=== PATIENT | female | born 1965 | race African-American/Black ===

== ENCOUNTER 2016-07-26 10:25 | Inpatient (IN) | payer OTHER ==
[2016-07-25 16:19] VITALS: BMI 32.8
[2016-07-26] VITALS (39 sets, daily range): BP systolic 90–146; BP diastolic 52–89; PULSE 66–94; RESP 9–19; Ht 180.3 cm; Wt 126.3 kg
[~2016-07-26] VITALS: Ht 180.3 cm; Wt 126.3 kg
[~2016-07-26 10:25] MED LIST: AMLO-147 PO; ATEN-51 PO; HYDR-902 PO; SUCCINYLCHOLINE CHLORIDE 100 MG/5 ML SYG IV ONE; ZOLP5TAB PO
--- NOTE | 2016-07-26 11:02 | PREOPHP ---
DATE OF ADMISSION: 07/26/2016 HISTORY OF PRESENT ILLNESS: The patient is a 50-year-old female who was originally seen in the [facility] for evaluation of neck pain with pain going down in the arms, right side greater than left side w ith weakness and numbness in the upper extremities. She also had gait instability. She would const antly lose her balance, but has not fallen yet. The patient was diagnosed with cervical stenosis wi th myelopathy and quadriparesis. Conservative management was initiated in the form of travel physical therapist apy and pain management. She did not improve. The patient also received epidural injection to the cervical spine which did not benefit her. Her condition is getting worse. The patient was having a n increasing amount of pain with more numbness and was having more gait instability. Something more definite needed to be done. The surgical intervention was discussed with the patient in the form of cervical 3 to cervical 7 morse inectomy with a fusion possible, instrumentation and possible laminoplasty. The patient has agreed to proceed with surgical intervention. PAST MEDICAL HISTORY: Per chart. PAST SURGICAL HISTORY: Per chart. SOCIAL HISTORY: Denies using drugs, alcohol and tobacco. ALLERGIES: POSSIBLY MORPHINE. MEDICATIONS: Taken at home, per chart. FAMILY HISTORY: Unremarkable. REVIEW OF SYSTEMS: Additional 10-point review of systems conducted. Pertinent positives in HPI. PHYSICAL EXAMINATION: GENERAL: The patient is awake, alert and she follows commands appropriately. HEENT: Head is atraumatic, normocephalic. Sclerae anicteric. EOMs intact. . No lesions, no bleeding. NECK: Supple, no thyromegaly, no JVD. PULMONARY: No dyspnea, no tachypnea. CARDIOVASCULAR SYSTEM: No JVD, no pedal edema. ABDOMEN: Soft without guarding. EXTREMITIES: Upper extremity exam, patient has 4/5 strength in the right deltoid, biceps, triceps, wrist extensors and flexors are equal on both sides. Sensation is intact throughout. Lower extremi ty examination, patient has equal strength in both the knees and ankles. Ankle flexion/extension an d sensation is intact. IMAGING FINDINGS: MRI of the cervical spine dated 05/17/2016 shows severe cervical stenosis, C3 to C7, with evidence of cord compression. IMPRESSION: The patient is a 50-year-old female who has history of severe cervical stenosis with ev idence of cord compression and myelopathy. The patient has difficulty with ambulation, has evidence of cervical radiculopathy as well as myelopathy. RECOMMENDATION: Is for patient to undergo surgical intervention in the form of cervical 3 to 7 lami nectomy with fusion and possible laminoplasty with possible instrumentation. The procedure was desc ribed to the patient in great deal. Unfortunately, this is the only option left. The patient has f jake conservative management. The complications of cervical intervention was discussed with the norma brock in the form of permanent nerve damage, bleeding, infection, complications with anesthesia, inc luding stroke, heart attack and even . The patient has agreed to proceed with intervention. P reop was performed. Patient has been cleared for surgical intervention. Will be admitted to the [facility] thereafter for further care and management. Dictated By: KEERTHI SIMPSON/MAL Conf#: [id number] DID#: [id number]
[2016-07-26] MEDS ORDERED: LORA10TA3 PO (11:11)
[2016-07-26] MEDS ORDERED: FLUT16SP17 NASAL (11:11)
[2016-07-26] MEDS ORDERED: SULF1TAB31 PO (11:12)
[2016-07-26] MEDS ORDERED: OMEP20CA16 PO (11:13)
[2016-07-26] MEDS ORDERED: ZOLP5TAB7 PO (11:19)
[2016-07-26] MEDS ORDERED: FENTAnyl 50 MCG/ML VIAL ONE ×2 (12:04→15:17)
[2016-07-26] MEDS ORDERED: ROCURONIUM 50 MG INJ ONE (12:04)
[2016-07-26] MEDS ORDERED: MIDAZOLAM 1 MG/ML 2 ML INJ ONE (12:04)
[2016-07-26] MEDS ORDERED: LIDOCAINE 2% (SDV) 5 ML INJ ONE (12:04)
[2016-07-26] MEDS ORDERED: NEOSTIGMINE 3 MG/3 ML SYRINGE ONE (12:04)
[2016-07-26] MEDS ORDERED: PROPOFOL 20 ML ONE (12:04)
[2016-07-26] MEDS ORDERED: GLYCOPYRROLATE 0.4 MG INJ ONE (12:04)
[2016-07-26] MEDS ORDERED: DEXAMETHASONE 4 MG/ML 1 ML INJ ONE (12:05)
[2016-07-26] MEDS ORDERED: ONDANSETRON 4 MG INJ ONE (12:05)
[2016-07-26] MEDS ORDERED: THROMBIN 5000 UNIT VIAL ONE ×2 (12:07→15:48)
[2016-07-26] MEDS ORDERED: GELATIN SIZE 100 SPONGE ONE ×2 (12:07→15:48)
--- NOTE | 2016-07-26 12:07 | HPN ---
Date/Time of Note Date/Time of Note DATE: 07/26/16 TIME: 12:06 Interval H&P Admission Note Pt. seen H&P reviewed: No system changes LINDSAY HARVEY PA-C Jul 26, 2016 12:07
[2016-07-26] MEDS ORDERED: LIDOCAINE 2%/EPI (MDV) 20ML INJ ONE (12:08)
[2016-07-26] MEDS ORDERED: POLYMYXIN/BACITRACIN 1L IRRIG ONE (12:08)
[2016-07-26 12:30] LABS: ADD UMIC NO; UR BILIRUBIN (Dip) NEGATIVE (NEGATIVE); UR BLOOD (Dip) NEGATIVE (NEGATIVE); UR CLARITY CLEAR (CLEAR); UR COLOR LT. YELLOW (YELLOW); UR GLUCOSE (Dip) NEGATIVE (NEGATIVE); UR KETONES (Dip) NEGATIVE (NEGATIVE); UR LEUKOCYTE ESTERASE (Dip) NEGATIVE (NEGATIVE); UR NITRITE (Dip) NEGATIVE (NEGATIVE); UR TOTAL PROTEIN (Dip) NEGATIVE (NEGATIVE); UR UROBILINOGEN (Dip) 0.2 E.U./dL (0.1-1.0)
[2016-07-26] MEDS ORDERED: ONDANSETRON 4 MG INJ IV PRN ×2 (12:30→13:00)
[2016-07-26] MEDS ORDERED: DIPHENHYDRAMINE 50 MG INJ IV PRN (13:00)
[2016-07-26] MEDS ORDERED: MEPERIDINE 25 MG INJ IV PRN (13:00)
[2016-07-26] MEDS ORDERED: ATROPINE 1 MG/10 ML SYRINGE IV PRN (13:00)
[2016-07-26] MEDS ORDERED: MIDAZOLAM 1 MG/ML 2 ML INJ IV PRN (13:00)
[2016-07-26] MEDS ORDERED: EPHEDrine SULFATE 50 MG/5 ML SYG IV PRN (13:00)
[2016-07-26] MEDS ORDERED: LABETALOL HCL 20MG INJ IV PRN (13:00)
[2016-07-26] MEDS ORDERED: hydrALAzine 20 MG INJ IV PRN ×2 (13:00→18:00)
[2016-07-26] MEDS ORDERED: FENTAnyl 50 MCG/ML VIAL IV PRN (13:00)
[2016-07-26] MEDS ORDERED: TRIMETHOPRIM/SULFAMETHOXAZOLE 10 ML in DEXTROSE 5% 250 ML IVPB SCH (14:00)
[2016-07-26] MEDS ORDERED: hydrALAzine 20 MG INJ ONE (14:04)
[2016-07-26] MEDS ORDERED: LABETALOL HCL 20MG INJ ONE (14:12)
[2016-07-26] MEDS ORDERED: EPHEDrine SULFATE 50 MG/5 ML SYG ONE (14:30)
[2016-07-26] MEDS ORDERED: THROMBIN 5000 UNIT VIAL TOP ONE (17:04)
[2016-07-26] MEDS: FENTAnyl 50 MCG/ML VIAL IV PRN ×2 (17:05→17:16)
[2016-07-26] MEDS ORDERED: HYDROmorphONE 0.2 MG/ML PCA ONE (17:26)
[2016-07-26] MEDS: HYDROmorphONE 0.2 MG/ML PCA IV SCH ×2 (17:36→22:00)
--- NOTE | 2016-07-26 18:53 | HP ---
DATE OF ADMISSION: 07/26/2016 CHIEF COMPLAINT AND HISTORY OF PRESENT ILLNESS: The patient is a 50-year-old female well known to teresa faria from previous admission. The patient has history of hypertension, lumbar spondylolisthesis, statu s post lumbar laminectomy. The patient was also subsequently diagnosed with cervical radiculopathy due to severe cervical stenosis and evidence of cord compression and myelopathy on MRI of the C-spin e back in 04/2016. The patient was complaining of chronic neck pain, which radiated to both upper e xtremities associated with weakness and numbness. The patient also had instability of her gait. Th e patient was brought into the hospital today and underwent C3 to C7 laminectomy with fusion. The p atient postoperatively had significant pain, which is being controlled by Dilaudid FUNERAL ARRANGEMENT DIRECTOR. Patient als o has a hard cervical collar. The patient denied any chest pain or abdominal pain, no reported leg edema. The patient is able to move all extremities and has remained responsive. No recent fevers, chills. No recent fall. No recent urinary or respiratory tract infection. unremarkable. PAST MEDICAL HISTORY: As stated above. PAST SURGICAL HISTORY: As stated above. In addition, the patient is status post hysterectomy. SOCIAL HISTORY: No smoking, no alcohol. ALLERGIES: NONE. FAMILY HISTORY: Noncontributory. PHYSICAL EXAMINATION: GENERAL: The patient is conscious, awake and alert. The patient is responsive, slightly sleepy but easily arousable. VITAL SIGNS: Temperature 97.4, pulse 66, respirations 16, blood pressure 130/89, O2 saturation 99% on 2 liters nasal cannula. HEENT: Conjunctivae and lids are normal. Nose and ears normal externally. NECK: Deferred due to cervical collar. CHEST: Fairly clear. CARDIOVASCULAR: S1, S2 normal. No murmur. ABDOMEN: Soft, nondistended, nontender. EXTREMITIES: No leg edema. NEUROLOGIC: The patient is a sleepy but arousable and follows simple commands and moves all extremi ties. LABORATORY DATA: Glucose 107, BUN 12, creatinine 0.8. Sodium 142, potassium 4.7. Liver enzymes no rmal. Coagulation profile normal with white count is 5.6, hemoglobin 15.9. The patient preoperativ lance did have possible urinary infection, although her urine culture was done for preop evaluation. The patient was treated with antibiotics prior to surgery. IMPRESSION: 1. Cervical spinal stenosis with cord compression and myelopathy status post laminectomy. 2. Hypertension. 3. History of lumbar stenosis and spondylolisthesis, status post surgery. PLAN: Patient admitted to ICU. Patient has an arterial line. We will continue to monitor her beth l signs closely. The patient is receiving IV Bactrim. THE PATIENT IS ALLERGIC TO MORPHINE, althoug h she is able to tolerate IV Dilaudid. We will use sequential compression devices for deep venous t hrombosis prophylaxis. The patient apparently was on Bactrim-DS prior to surgery for her recent Esc herichia coli in the urine culture. We will be resume amlodipine and atenolol, Flonase nasal spray and Ambien and proton pump inhibitor whenever she is able to take p.o. We will continue to follow h er from a medical standpoint. While she is n.p.o., we will use IV hydralazine p.r.n. for blood pres sure. Dictated By: ISIAH GRANT/MAL Conf#: [id number] DID#: [id number]
[2016-07-26] MEDS: HYDROCODONE/APAP (10/325) TAB PO PRN (19:12)
[2016-07-26] MEDS: DEXAMETHASONE 4 MG/ML 1 ML INJ IV SCH (19:17)
--- NOTE | 2016-07-26 21:48 | RADRPT ---
PROCEDURE: Intraoperative fluoroscopy. CLINICAL INDICATION: Intraoperative fluoroscopy during C3-C7 posterior fusion. TECHNIQUE: 3 spot intraoperative fluoroscopic images were provided. The images were reviewed on a high-resolution PACS workstation. COMPARISON: None available FINDINGS: Multiple spot intraoperative fluoroscopic views were provided during all C3-C7 posterior fusion. Th e images demonstrate partial visualization of the upper cervical spine and C3-C4. The total fluoros copy time was 12.3 seconds. IMPRESSION: 1. Multiple spot intraoperative fluoroscopic views during cervical fusion were provided. 2. Please see operative report of the same day for further information. RPTAT: HGAS .Arsenio Rhodes MD, MD Date Time Electronically viewed and signed by .Arsenio Rhodes MD, on 07/26/2016 21:48 .S/
[2016-07-26] MEDS: DEXTROSE 5%-LR 1,000 ML IV SCH (21:50)
[2016-07-26] MEDS: TRIMETHOPRIM/SULFAMETHOXAZOLE 10 ML in DEXTROSE 5% 250 ML IVPB SCH (22:06)
[2016-07-27] VITALS (22 sets, daily range): BP systolic 88–139; BP diastolic 58–115; PULSE 55–90; RESP 8–20
[2016-07-27] MEDS: DEXAMETHASONE 4 MG/ML 1 ML INJ IV SCH ×4 (01:10→18:20)
[2016-07-27] MEDS: HYDROCODONE/APAP (10/325) TAB PO PRN ×6 (01:10→22:09)
[2016-07-27] MEDS: ONDANSETRON 4 MG INJ IV PRN (02:45)
[2016-07-27 05:12] LABS: ADD SCAN DIFF NO
[2016-07-27] MEDS: PANTOPRAZOLE (EC) 40 MG TAB PO SCH (05:13)
[2016-07-27 05:18] LABS: BASOPHILS % 0.1 % (0.0-2.0); HEMATOCRIT 43.3 % (37.0-47.0); HEMOGLOBIN 14.1 g/dl (12.0-16.0); LYMPHOCYTES # 0.8 10^3/ul (0.8-2.9); LYMPHOCYTES % 5.3 % (15.0-51.0); MEAN CORPUSCULAR HEMOGLOBIN 29.8 pg (29.0-33.0); MEAN CORPUSCULAR HGB CONC 32.6 g/dl (32.0-37.0); MEAN CORPUSCULAR VOLUME 91.5 fl (82.0-101.0); MEAN PLATELET VOLUME 10.9 fl (7.4-10.4); MONOCYTE # 0.3 10^3/ul (0.3-0.9); MONOCYTES % 1.8 % (0.0-11.0); NEUTROPHIL # 13.1 10^3/ul (1.6-7.5); NEUTROPHILS % 92.3 % (39.0-77.0); PLATELET COUNT 275 10^3/UL (140-415); RED BLOOD COUNT 4.73 10^6/ul (4.20-5.40); RED CELL DISTRIBUTION WIDTH 12.7 % (11.5-14.5); WHITE BLOOD COUNT 14.2 10^3/ul (4.8-10.8)
[2016-07-27] MEDS: HYDROmorphONE 0.2 MG/ML PCA IV SCH ×5 (05:27→23:38)
[2016-07-27 05:35] LABS: CALCIUM 8.8 mg/dl (8.4-10.2); CREATININE 0.69 mg/dl (0.44-1.00); POTASSIUM 4.7 mmol/L (3.5-5.1)
[2016-07-27] MEDS: TRIMETHOPRIM/SULFAMETHOXAZOLE 10 ML in DEXTROSE 5% 250 ML IVPB SCH (05:51)
[2016-07-27] MEDS: FLUTICASONE 0.05% 16 GM NAS SPRAY NASAL SCH (05:52)
[2016-07-27] MEDS: DEXTROSE 5%-LR 1,000 ML IV SCH ×2 (06:50→20:10)
--- NOTE | 2016-07-27 07:16 | CONS ---
Date/Time of Note Date/Time of Note DATE: 07/27/16 TIME: 07:13 Assessment/Plan Assessment/Plan Additional Assessment/Plan seen/examined awake/alert/follows/moves all/sensation intact post cervical decompression drain functional, keep on full suction, drain q8hrs pt may start pt/ot may leave unit Consultation Date/Type/Reason Admit Date/Time Jul 26, 2016 at 10:25 Initial Consult Date Exam/Review of Systems Vital Signs Vitals Vital Signs Date Time Temp Pulse Resp B/P Pulse Ox O2 Delivery O2 Flow Rate FiO2 07/27/16 06:18 96 4.0 07/27/16 06:00 69 9 110/70 07/27/16 04:00 98.4 07/27/16 02:00 Nasal Cannula Intake and Output 07/26/16 07/26/16 07/27/16 15:00 23:00 07:00 Intake Total 3810 ml 690 ml Output Total 1310 ml 650 ml Balance 2500 ml 40 ml Results Result Diagram: 07/27/16 0430 07/27/16 0430 Results 24 hrs Laboratory Tests Test 07/26/16 11:00 07/27/16 01:01 07/27/16 04:30 Urine Color LT. YELLOW Urine Clarity CLEAR Urine pH 6.0 Urine Specific [place] >=1.030 H Urine Ketones NEGATIVE Urine Nitrite NEGATIVE Urine Bilirubin NEGATIVE Urine Urobilinogen 0.2 E.U./dL Urine Leukocyte Esterase NEGATIVE Urine Hemoglobin NEGATIVE Urine Glucose NEGATIVE Urine Total Protein NEGATIVE Bedside Glucose 140 White Blood Count 14.2 #H Red Blood Count 4.73 # Hemoglobin 14.1 # Hematocrit 43.3 # Mean Corpuscular Volume 91.5 Mean Corpuscular Hemoglobin 29.8 Mean Corpuscular Hemoglobin Concent 32.6 Red Cell Distribution Width 12.7 Platelet Count 275 Mean Platelet Volume 10.9 #H Neutrophils % 92.3 H Lymphocytes % 5.3 L Monocytes % 1.8 Eosinophils % 0.0 Basophils % 0.1 Nucleated Red Blood Cells % 0.0 Neutrophils # 13.1 H Lymphocytes # 0.8 Monocytes # 0.3 Eosinophils # 0.0 Basophils # 0.0 Nucleated Red Blood Cells # 0.0 Sodium Level 140 Potassium Level 4.7 Chloride Level 108 Carbon Dioxide Level 25 Anion Gap 12 Blood Urea Nitrogen 9 Creatinine 0.69 Glucose Level 127 Calcium Level 8.8 Medications Medications Current Medications Acetaminophen/ Hydrocodone Bitart ([place] (10325)) 1 tab Q4H PRN PO PAIN Last administered on 07/27/16 05:13; Admin Dose 1 TAB; Start 07/26/16 at 12:30 Dexamethasone (Decadron) 4 mg Q6 IV Last administered on 07/27/16 05:13; Admin Dose 4 MG; Start 07/26/16 at 18:00; Stop 07/27/16 at 18:00 Ondansetron HCl (Zofran Inj) 4 mg Q6H PRN IV NAUSEA AND/OR VOMITING Last administered on 07/27/16 02:45; Admin Dose 4 MG; Start 07/26/16 at 12:30 Hydromorphone HCl 6 mg 6 mg Q4PCA IV Last administered on 07/27/16 05:27; Admin Dose 6 MG; Start 07/26/16 at 17:30 Dextrose/Lactated Ringer's (D5-Lr) 1,000 ml @ 75 mls/hr [id number] IV Last administered on 07/26/16 21:50; Admin Dose 75 MLS/HR; Start 07/26/16 at 17:30 Amlodipine Besylate (Norvasc) 10 mg DAILY PO ; Start 07/27/16 at 09:00 Atenolol (Tenormin) 25 mg DAILY PO ; Start 07/27/16 at 09:00 Fluticasone Propionate (Flonase 0.05% Nasal) 1 spray DAILY NASAL Last administered on 07/27/16 05:52; Admin Dose 1 SPRAY; Start 07/27/16 at 09:00 Zolpidem Tartrate (Ambien) 5 mg QHS PRN PO INSOMNIA; Start 07/26/16 at 18:00 Pantoprazole (Protonix Tab) 40 mg DAILY@06 PO Last administered on 07/27/16 05: 13; Admin Dose 40 MG; Start 07/27/16 at 06:00 Hydralazine HCl 10 mg 10 mg Q4H PRN IV sbp >150 & dbp>95; Start 07/26/16 at 18: 00 Trimethoprim/ Sulfamethoxazole/ Dextrose (Bactrim/D5W) 260 ml @ 173.333 mls/hr Q8 IVPB Last administered on 07/27/16 05:51; Admin Dose 173.333 MLS/HR; Start 07/26/16 at 22:00; Stop 07/29/16 at 21:59 LINDSAY HARVEY PA-C Jul 27, 2016 07:16
[2016-07-27] MEDS ORDERED: AMLODIPINE 10 MG TAB PO SCH (09:00)
[2016-07-27] MEDS: ATENOLOL 25 MG TAB PO SCH (09:22)
[2016-07-27] MEDS: CYCLOBENZAPRINE 10 MG TAB PO SCH ×2 (12:59→20:19)
--- NOTE | 2016-07-27 13:22 | PN ---
DATE: 07/27/2016 SUBJECTIVE: Follow up on cervical decompression. The patient remains awake, alert, complaining of back spasm. No reported chest pain or shortness of breath. No reported fever or chills. PHYSICAL EXAMINATION: GENERAL: The patient is conscious, awake, alert. VITAL SIGNS: This morning, temperature 98.1, pulse 63, respirations between 10 to 13, blood pressur e 107/72, O2 saturation 95% on 4 liters. HEENT: No eye discharge or redness. NECK: Cervical collar in place. CHEST: Fairly clear. CARDIOVASCULAR: S1, S2 normal. No murmur. ABDOMEN: Soft, nondistended, nontender. EXTREMITIES: No leg edema. NEUROLOGIC: The patient is awake, alert, follows simple commands and moves all extremities. LABORATORY DATA: WBC 14.3, hemoglobin 14.1. Chemistry unremarkable. IMPRESSION: 1. Cervical spinal stenosis with cord compression, status post surgery. 2. Hypertension. 3. History of lumbar stenosis, status post surgery. PLAN: We will write hold parameters for her antihypertensive medications. We will decrease Norvasc to 5 mg a day since blood pressure is less than 110 on multiple occasions. We will continue atenol ol. Will do followup CBC. Continue postop care as per Dr. Cardona. Put of ICU once cleared by [facility]. We will switch her IV Bactrim to p.o. Bactrim. Dictated By: SIIAH GRANT/MAL Conf#: [id number] DID#: [id number]
[2016-07-27] MEDS ORDERED: HYDROmorphONE 1 MG/ML SYG IV STA (19:40)
[2016-07-27] MEDS: TRIMETHOPRIM/SULFAMETHOX (DS) TAB GTB SCH (20:20)
[2016-07-27] MEDS ORDERED: HYDROmorphONE 1 MG/ML SYG IV PRN (20:30)
[2016-07-27] MEDS ORDERED: HYDROmorphONE 0.2 MG/ML PCA IV SCH (21:00)
[2016-07-28] VITALS (27 sets, daily range): BP systolic 95–129; BP diastolic 57–88; PULSE 55–77; RESP 7–17
[2016-07-28] MEDS: ZOLPIDEM 5 MG TAB PO PRN ×2 (00:17→23:48)
[2016-07-28] MEDS: DEXTROSE 5%-LR 1,000 ML IV SCH ×2 (04:58→18:06)
[2016-07-28] MEDS: HYDROCODONE/APAP (10/325) TAB PO PRN ×4 (05:06→19:43)
[2016-07-28] MEDS: PANTOPRAZOLE (EC) 40 MG TAB PO SCH (05:07)
[2016-07-28] MEDS: HYDROmorphONE 0.2 MG/ML PCA IV SCH ×5 (06:50→21:03)
[2016-07-28] MEDS: AMLODIPINE 5 MG TAB PO SCH (09:00)
[2016-07-28] MEDS: ATENOLOL 25 MG TAB PO SCH (09:00)
[2016-07-28] MEDS: FLUTICASONE 0.05% 16 GM NAS SPRAY NASAL SCH (09:09)
[2016-07-28] MEDS: TRIMETHOPRIM/SULFAMETHOX (DS) TAB GTB SCH ×2 (09:09→20:21)
[2016-07-28] MEDS: CYCLOBENZAPRINE 10 MG TAB PO SCH ×3 (09:26→20:21)
[2016-07-28 09:52] LABS: ADD SCAN DIFF NO
[2016-07-28 10:16] LABS: BASOPHILS % 0.1 % (0.0-2.0); HEMATOCRIT 42.5 % (37.0-47.0); HEMOGLOBIN 13.3 g/dl (12.0-16.0); LYMPHOCYTES # 1.8 10^3/ul (0.8-2.9); LYMPHOCYTES % 10.5 % (15.0-51.0); MEAN CORPUSCULAR HEMOGLOBIN 29.9 pg (29.0-33.0); MEAN CORPUSCULAR HGB CONC 31.3 g/dl (32.0-37.0); MEAN CORPUSCULAR VOLUME 95.5 fl (82.0-101.0); MEAN PLATELET VOLUME 10.9 fl (7.4-10.4); MONOCYTE # 1.2 10^3/ul (0.3-0.9); MONOCYTES % 7.4 % (0.0-11.0); NEUTROPHIL # 13.7 10^3/ul (1.6-7.5); NEUTROPHILS % 81.6 % (39.0-77.0); PLATELET COUNT 303 10^3/UL (140-415); RED BLOOD COUNT 4.45 10^6/ul (4.20-5.40); RED CELL DISTRIBUTION WIDTH 13.1 % (11.5-14.5); WHITE BLOOD COUNT 16.8 10^3/ul (4.8-10.8)
--- NOTE | 2016-07-28 15:50 | PN ---
Date/Time of Note Date/Time of Note DATE: 07/28/16 TIME: 15:46 Assessment/Plan VTE Prophylaxis VTE Prophylaxis Intervention: SCD's Lines/Catheters IV Catheter Type (from Nrsg): Peripheral IV Urinary Cath still in place: Yes Reason Cath still needed: urinary retention Assessment/Plan Chief Complaint/Hosp Course Patient's continues on CIRCUS TRAIN SUPERVISOR Dilaudid, complaints of breakthrough pain when awake , minimal amount of drainage from Hemovac back, stable vital signs. Problems: Assessment/Plan 1. Cervical spinal stenosis with cord compression, status post surgery. Continue to follow-up surgical recommendations. 2. Hypertension. currently normotensive. 3. History of lumbar stenosis, status post surgery. Further recommendations based on clinical course. Plan of care discussed with Dr. Wade. Exam/Review of Systems Vital Signs Vitals Vital Signs Date Time Temp Pulse Resp B/P Pulse Ox O2 Delivery O2 Flow Rate FiO2 07/28/16 15:35 15 07/28/16 14:00 65 115/81 100 Nasal Cannula 4.0 07/28/16 12:00 98.1 Intake and Output 07/27/16 07/27/16 07/28/16 15:00 23:00 07:00 Intake Total 1080 ml 350 ml 740 ml Output Total 895 ml 475 ml 1125 ml Balance 185 ml -125 ml -385 ml Exam Constitutional: alert Head: normocephalic Neck: other (Status post surgery with dry clean and dry and intact dressing and Hemovac), supple Respiratory: clear to auscultation Cardiovascular: nl pulses Gastrointestinal: non-tender, soft Musculoskeletal: nl extremities to inspection Extremities: normal pulses Neurological: nl mental status Results Result Diagram: 07/28/16 0922 07/27/16 0430 Results 24 hrs Laboratory Tests Test 07/28/16 09:22 White Blood Count 16.8 H Red Blood Count 4.45 Hemoglobin 13.3 Hematocrit 42.5 Mean Corpuscular Volume 95.5 Mean Corpuscular Hemoglobin 29.9 Mean Corpuscular Hemoglobin Concent 31.3 L Red Cell Distribution Width 13.1 Platelet Count 303 Mean Platelet Volume 10.9 H Neutrophils % 81.6 H Lymphocytes % 10.5 L Monocytes % 7.4 Eosinophils % 0.0 Basophils % 0.1 Nucleated Red Blood Cells % 0.0 Neutrophils # 13.7 H Lymphocytes # 1.8 Monocytes # 1.2 H Eosinophils # 0.0 Basophils # 0.0 Nucleated Red Blood Cells # 0.0 Medications Medications Current Medications Acetaminophen/ Hydrocodone Bitart ([place] (10/325)) 1 tab Q4H PRN PO PAIN Last administered on 07/28/16 14:30; Admin Dose 1 TAB; Start 07/26/16 at 12:30 Ondansetron HCl 4 mg 4 mg Q6H PRN IV NAUSEA AND/OR VOMITING Last administered on 07/27/16 02:45; Admin Dose 4 MG; Start 07/26/16 at 12:30 Dextrose/Lactated Ringer's (D5-Lr) 1,000 ml @ 75 mls/hr [id number] IV Last administered on 07/28/16 04:58; Admin Dose 75 MLS/HR; Start 07/26/16 at 17:30 Atenolol (Tenormin) 25 mg DAILY PO Last administered on 07/27/16 09:22; Admin Dose 25 MG; Start 07/27/16 at 09:00 Fluticasone Propionate (Flonase 0.05% Nasal) 1 spray DAILY NASAL Last administered on 07/28/16 09:09; Admin Dose 1 SPRAY; Start 07/27/16 at 09:00 Zolpidem Tartrate (Ambien) 5 mg QHS PRN PO INSOMNIA Last administered on 00:17; Admin Dose 5 MG; Start 07/26/16 at 18:00 Pantoprazole (Protonix Tab) 40 mg DAILY@06 PO Last administered on 07/28/16 05: 07; Admin Dose 40 MG; Start 07/27/16 at 06:00 Hydralazine HCl (Apresoline) 10 mg Q4H PRN IV sbp >150 & dbp>95; Start 07/26/16 at 18:00 Cyclobenzaprine HCl (Flexeril) 10 mg TID PO Last administered on 07/28/16 12:58 ; Admin Dose 10 MG; Start 07/27/16 at 13:00 Amlodipine Besylate (Norvasc) 5 mg DAILY PO ; Start 07/28/16 at 09:00 Trimethoprim/ Sulfamethoxazole (Bactrim (Ds)) 1 tab BID GTB Last administered on 07/28/16 09:09; Admin Dose 1 TAB; Start 07/27/16 at 21:00 Hydromorphone HCl (Dilaudid) 1 mg Q1HWA PRN IV PAIN LEVEL 7-10; Start 07/27/16 at 20:30 Hydromorphone HCl (Dilaudid CIRCUS TRAIN SUPERVISOR) 6 mg Q4H IV Last administered on 07/28/16 15: 32; Admin Dose 6 MG; Start 07/27/16 at 20:30 DANII PELAEZ Jul 28, 2016 15:50
--- NOTE | 2016-07-28 16:06 | CONS ---
Date/Time of Note Date/Time of Note DATE: 07/28/16 TIME: 16:04 Assessment/Plan Assessment/Plan Additional Assessment/Plan seen/examined awake/alert/follows/moves all co neck spasm with numbness in shoulders advised pt not to put any pressure on the surgical site ativan will be given prior to mri keep hemovac drain another day Consultation Date/Type/Reason Admit Date/Time Jul 26, 2016 at 10:25 Exam/Review of Systems Vital Signs Vitals Vital Signs Date Time Temp Pulse Resp B/P Pulse Ox O2 Delivery O2 Flow Rate FiO2 07/28/16 15:35 15 07/28/16 14:00 65 115/81 100 Nasal Cannula 4.0 07/28/16 12:00 98.1 Intake and Output 07/27/16 07/27/16 07/28/16 15:00 23:00 07:00 Intake Total 1080 ml 350 ml 740 ml Output Total 895 ml 475 ml 1125 ml Balance 185 ml -125 ml -385 ml Results Result Diagram: 07/28/16 0922 07/27/16 0430 Results 24 hrs Laboratory Tests Test 07/28/16 09:22 White Blood Count 16.8 H Red Blood Count 4.45 Hemoglobin 13.3 Hematocrit 42.5 Mean Corpuscular Volume 95.5 Mean Corpuscular Hemoglobin 29.9 Mean Corpuscular Hemoglobin Concent 31.3 L Red Cell Distribution Width 13.1 Platelet Count 303 Mean Platelet Volume 10.9 H Neutrophils % 81.6 H Lymphocytes % 10.5 L Monocytes % 7.4 Eosinophils % 0.0 Basophils % 0.1 Nucleated Red Blood Cells % 0.0 Neutrophils # 13.7 H Lymphocytes # 1.8 Monocytes # 1.2 H Eosinophils # 0.0 Basophils # 0.0 Nucleated Red Blood Cells # 0.0 Medications Medications Current Medications Acetaminophen/ Hydrocodone Bitart ([place] (10/325)) 1 tab Q4H PRN PO PAIN Last administered on 07/28/16 14:30; Admin Dose 1 TAB; Start 07/26/16 at 12:30 Ondansetron HCl 4 mg 4 mg Q6H PRN IV NAUSEA AND/OR VOMITING Last administered on 07/27/16 02:45; Admin Dose 4 MG; Start 07/26/16 at 12:30 Dextrose/Lactated Ringer's (D5-Lr) 1,000 ml @ 75 mls/hr [id number] IV Last administered on 07/28/16 04:58; Admin Dose 75 MLS/HR; Start 07/26/16 at 17:30 Atenolol (Tenormin) 25 mg DAILY PO Last administered on 07/27/16 09:22; Admin Dose 25 MG; Start 07/27/16 at 09:00 Fluticasone Propionate (Flonase 0.05% Nasal) 1 spray DAILY NASAL Last administered on 07/28/16 09:09; Admin Dose 1 SPRAY; Start 07/27/16 at 09:00 Zolpidem Tartrate (Ambien) 5 mg QHS PRN PO INSOMNIA Last administered on 00:17; Admin Dose 5 MG; Start 07/26/16 at 18:00 Pantoprazole (Protonix Tab) 40 mg DAILY@06 PO Last administered on 07/28/16 05: 07; Admin Dose 40 MG; Start 07/27/16 at 06:00 Hydralazine HCl (Apresoline) 10 mg Q4H PRN IV sbp >150 & dbp>95; Start 07/26/16 at 18:00 Cyclobenzaprine HCl (Flexeril) 10 mg TID PO Last administered on 07/28/16 12:58 ; Admin Dose 10 MG; Start 07/27/16 at 13:00 Amlodipine Besylate (Norvasc) 5 mg DAILY PO ; Start 07/28/16 at 09:00 Trimethoprim/ Sulfamethoxazole (Bactrim (Ds)) 1 tab BID GTB Last administered on 07/28/16 09:09; Admin Dose 1 TAB; Start 07/27/16 at 21:00 Hydromorphone HCl (Dilaudid) 1 mg Q1HWA PRN IV PAIN LEVEL 7-10; Start 07/27/16 at 20:30 Hydromorphone HCl (Dilaudid DIMENSION STONE QUARRY SUPERVISOR) 6 mg Q4H IV Last administered on 07/28/16 15: 32; Admin Dose 6 MG; Start 07/27/16 at 20:30 LINDSAY HARVEY PA-C Jul 28, 2016 16:06
[2016-07-28] MEDS ORDERED: LORAZEPAM 2 MG INJ IV ONE (16:30)
[2016-07-28] MEDS: DEXAMETHASONE 4 MG/ML 1 ML INJ IV SCH ×2 (18:03→23:48)
[2016-07-28] MEDS: DOCUSATE SODIUM 250 MG CAP PO SCH (20:21)
[2016-07-29] VITALS (20 sets, daily range): BP systolic 106–159; BP diastolic 63–123; PULSE 59–114; RESP 8–25
[2016-07-29] MEDS: HYDROmorphONE 0.2 MG/ML PCA IV SCH ×3 (00:30→09:26)
[2016-07-29] MEDS: HYDROCODONE/APAP (10/325) TAB PO PRN ×5 (00:32→21:34)
[2016-07-29] MEDS: ONDANSETRON 4 MG INJ IV PRN (03:44)
[2016-07-29 05:44] LABS: ADD SCAN DIFF NO
[2016-07-29 05:48] LABS: BASOPHILS % 0.1 % (0.0-2.0); HEMATOCRIT 42.5 % (37.0-47.0); HEMOGLOBIN 13.2 g/dl (12.0-16.0); LYMPHOCYTES % 8.7 % (15.0-51.0); MEAN CORPUSCULAR HEMOGLOBIN 29.6 pg (29.0-33.0); MEAN CORPUSCULAR HGB CONC 31.1 g/dl (32.0-37.0); MEAN CORPUSCULAR VOLUME 95.3 fl (82.0-101.0); MONOCYTE # 0.4 10^3/ul (0.3-0.9); MONOCYTES % 3.3 % (0.0-11.0); NEUTROPHIL # 10.4 10^3/ul (1.6-7.5); NEUTROPHILS % 87.5 % (39.0-77.0); PLATELET COUNT 262 10^3/UL (140-415); RED BLOOD COUNT 4.46 10^6/ul (4.20-5.40); WHITE BLOOD COUNT 11.9 10^3/ul (4.8-10.8)
[2016-07-29] MEDS: PANTOPRAZOLE (EC) 40 MG TAB PO SCH (06:15)
[2016-07-29] MEDS: DEXAMETHASONE 4 MG/ML 1 ML INJ IV SCH ×3 (06:15→17:06)
[2016-07-29 06:17] LABS: CALCIUM 9.2 mg/dl (8.4-10.2); CREATININE 0.84 mg/dl (0.44-1.00); POTASSIUM 5.2 mmol/L (3.5-5.1)
[2016-07-29] MEDS: DEXTROSE 5%-LR 1,000 ML IV SCH (07:23)
[2016-07-29] MEDS: TRIMETHOPRIM/SULFAMETHOX (DS) TAB GTB SCH ×2 (08:20→20:00)
[2016-07-29] MEDS: CYCLOBENZAPRINE 10 MG TAB PO SCH ×3 (08:20→19:59)
[2016-07-29] MEDS: FLUTICASONE 0.05% 16 GM NAS SPRAY NASAL SCH (08:21)
[2016-07-29] MEDS: ATENOLOL 25 MG TAB PO SCH (09:00)
[2016-07-29] MEDS: AMLODIPINE 5 MG TAB PO SCH ×2 (09:00→12:49)
--- NOTE | 2016-07-29 10:56 | PN ---
Date/Time of Note Date/Time of Note DATE: 07/29/16 TIME: 10:55 Assessment/Plan VTE Prophylaxis VTE Prophylaxis Intervention: other Lines/Catheters IV Catheter Type (from Nrs): Peripheral IV Urinary Cath still in place: No Assessment/Plan Chief Complaint/Hosp Course 1. Cervical spinal stenosis with cord compression, status post surgery. Continue to follow-up surgical recommendations. 2. Hypertension. currently normotensive. 3. History of lumbar stenosis, status post surgery. Problems: Subjective 24 Hr Interval Summary Free Text/Dictation Patient complains of neck pain and spasm Exam/Review of Systems Vital Signs Vitals Vital Signs Date Time Temp Pulse Resp B/P Pulse Ox O2 Delivery O2 Flow Rate FiO2 07/29/16 10:00 75 21 116/68 100 Nasal Cannula 3.0 07/29/16 08:00 97.8 Intake and Output 07/28/16 07/28/16 07/29/16 15:00 23:00 07:00 Intake Total 1320 ml 1510 ml 600 ml Output Total 1295 ml 755 ml 1030 ml Balance 25 ml 755 ml -430 ml Exam Constitutional: well developed Head: atraumatic, normocephalic Neck: supple Respiratory: clear to auscultation Cardiovascular: regular rate and rhythm Gastrointestinal: non-tender, soft Extremities: normal pulses Results Result Diagram: 07/29/16 0506 07/29/16 0506 Results 24 hrs Laboratory Tests Test 07/29/16 05:06 07/29/16 05:36 White Blood Count 11.9 #H Red Blood Count 4.46 Hemoglobin 13.2 Hematocrit 42.5 Mean Corpuscular Volume 95.3 Mean Corpuscular Hemoglobin 29.6 Mean Corpuscular Hemoglobin Concent 31.1 L Red Cell Distribution Width 13.0 Platelet Count 262 Mean Platelet Volume 11.0 H Neutrophils % 87.5 H Lymphocytes % 8.7 L Monocytes % 3.3 Eosinophils % 0.0 Basophils % 0.1 Nucleated Red Blood Cells % 0.0 Neutrophils # 10.4 H Lymphocytes # 1.0 Monocytes # 0.4 Eosinophils # 0.0 Basophils # 0.0 Nucleated Red Blood Cells # 0.0 Sodium Level 139 Potassium Level 5.2 H Chloride Level 102 Carbon Dioxide Level 32 H Anion Gap 10 Blood Urea Nitrogen 16 Creatinine 0.84 Glucose Level 137 Calcium Level 9.2 Lab Scanned Report REFERENCE LAB Medications Medications Current Medications Acetaminophen/ Hydrocodone Bitart ([place] (10/325)) 1 tab Q4H PRN PO PAIN Last administered on 07/29/16 08:20; Admin Dose 1 TAB; Start 07/26/16 at 12:30 Ondansetron HCl 4 mg 4 mg Q6H PRN IV NAUSEA AND/OR VOMITING Last administered on 07/29/16 03:44; Admin Dose 4 MG; Start 07/26/16 at 12:30 Dextrose/Lactated Ringer's (D5-Lr) 1,000 ml @ 75 mls/hr [id number] IV Last administered on 07/29/16 07:23; Admin Dose 75 MLS/HR; Start 07/26/16 at 17:30 Atenolol (Tenormin) 25 mg DAILY PO Last administered on 07/27/16 09:22; Admin Dose 25 MG; Start 07/27/16 at 09:00 Fluticasone Propionate (Flonase 0.05% Nasal) 1 spray DAILY NASAL Last administered on 07/29/16 08:21; Admin Dose 1 SPRAY; Start 07/27/16 at 09:00 Zolpidem Tartrate (Ambien) 5 mg QHS PRN PO INSOMNIA Last administered on 23:48; Admin Dose 5 MG; Start 07/26/16 at 18:00 Pantoprazole (Protonix Tab) 40 mg DAILY@06 PO Last administered on 07/29/16 06 :15; Admin Dose 40 MG; Start 07/27/16 at 06:00 Hydralazine HCl (Apresoline) 10 mg Q4H PRN IV sbp >150 & dbp>95; Start 07/26/16 at 18:00 Cyclobenzaprine HCl (Flexeril) 10 mg TID PO Last administered on 07/29/16 08: 20; Admin Dose 10 MG; Start 07/27/16 at 13:00 Amlodipine Besylate (Norvasc) 5 mg DAILY PO ; Start 07/28/16 at 09:00 Trimethoprim/ Sulfamethoxazole (Bactrim (Ds)) 1 tab BID GTB Last administered on 07/29/16 08:20; Admin Dose 1 TAB; Start 07/27/16 at 21:00 Hydromorphone HCl (Dilaudid) 1 mg Q1HWA PRN IV PAIN LEVEL 7-10 Last administered on 07/29/16 03:03; Admin Dose 1 MG; Start 07/27/16 at 20:30 Hydromorphone HCl (Dilaudid SENIOR JAVA ARCHITECT) 6 mg Q4H IV Last administered on 07/29/16 09: 26; Admin Dose 6 MG; Start 07/27/16 at 20:30 Dexamethasone (Decadron) 4 mg Q6 IV Last administered on 07/29/16 06:15; Admin Dose 4 MG; Start 07/28/16 at 18:00 Docusate Sodium (Colace) 250 mg HS PO Last administered on 07/28/16 20:21; Admin Dose 250 MG; Start 07/28/16 at 21:00 DAWNA SAUNDERS Jul 29, 2016 10:56
[2016-07-29] MEDS ORDERED: LORAZEPAM 2 MG INJ ONE (13:35)
--- NOTE | 2016-07-29 13:52 | CONS ---
Date/Time of Note Date/Time of Note DATE: 07/29/16 TIME: 13:49 Assessment/Plan Assessment/Plan Additional Assessment/Plan seen/examined awake/alert/follows/moves all still co neck spasm and numbness, but feeling better today cervical spine mri pending, hopefully today hemovac with 30cc collection will dc hemovac within 24hrs Consultation Date/Type/Reason Admit Date/Time Jul 26, 2016 at 10:25 Exam/Review of Systems Vital Signs Vitals Vital Signs Date Time Temp Pulse Resp B/P Pulse Ox O2 Delivery O2 Flow Rate FiO2 07/29/16 13:00 87 25 148/79 100 Nasal Cannula 3.0 07/29/16 12:00 98.0 Intake and Output 07/28/16 07/28/16 07/29/16 15:00 23:00 07:00 Intake Total 1320 ml 1510 ml 600 ml Output Total 1295 ml 755 ml 1030 ml Balance 25 ml 755 ml -430 ml Results Result Diagram: 07/29/16 0506 07/29/16 0506 Results 24 hrs Laboratory Tests Test 07/29/16 05:06 07/29/16 05:36 White Blood Count 11.9 #H Red Blood Count 4.46 Hemoglobin 13.2 Hematocrit 42.5 Mean Corpuscular Volume 95.3 Mean Corpuscular Hemoglobin 29.6 Mean Corpuscular Hemoglobin Concent 31.1 L Red Cell Distribution Width 13.0 Platelet Count 262 Mean Platelet Volume 11.0 H Neutrophils % 87.5 H Lymphocytes % 8.7 L Monocytes % 3.3 Eosinophils % 0.0 Basophils % 0.1 Nucleated Red Blood Cells % 0.0 Neutrophils # 10.4 H Lymphocytes # 1.0 Monocytes # 0.4 Eosinophils # 0.0 Basophils # 0.0 Nucleated Red Blood Cells # 0.0 Sodium Level 139 Potassium Level 5.2 H Chloride Level 102 Carbon Dioxide Level 32 H Anion Gap 10 Blood Urea Nitrogen 16 Creatinine 0.84 Glucose Level 137 Calcium Level 9.2 Lab Scanned Report REFERENCE LAB Medications Medications Current Medications Acetaminophen/ Hydrocodone Bitart ([place] ()) 1 tab Q4H PRN PO PAIN Last administered on 07/29/16t 12:50; Admin Dose 1 TAB; Start 07/26/16 at 12:30 Ondansetron HCl 4 mg 4 mg Q6H PRN IV NAUSEA AND/OR VOMITING Last administered on 07/29/16 03:44; Admin Dose 4 MG; Start 07/26/16 at 12:30 Dextrose/Lactated Ringer's (D5-Lr) 1,000 ml @ 75 mls/hr [id number] IV Last administered on 07/29/16 07:23; Admin Dose 75 MLS/HR; Start 07/26/16 at 17:30 Atenolol (Tenormin) 25 mg DAILY PO Last administered on 07/27/16 09:22; Admin Dose 25 MG; Start 07/27/16 at 09:00 Fluticasone Propionate (Flonase 0.05% Nasal) 1 spray DAILY NASAL Last administered on 07/29/16 08:21; Admin Dose 1 SPRAY; Start 07/27/16 at 09:00 Zolpidem Tartrate (Ambien) 5 mg QHS PRN PO INSOMNIA Last administered on 23:48; Admin Dose 5 MG; Start 07/26/16 at 18:00 Pantoprazole (Protonix Tab) 40 mg DAILY@06 PO Last administered on 07/29/16 06 :15; Admin Dose 40 MG; Start 07/27/16 at 06:00 Hydralazine HCl (Apresoline) 10 mg Q4H PRN IV sbp >150 & dbp>95; Start 07/26/16 at 18:00 Cyclobenzaprine HCl (Flexeril) 10 mg TID PO Last administered on 07/29/16 12: 50; Admin Dose 10 MG; Start 07/27/16 at 13:00 Amlodipine Besylate (Norvasc) 5 mg DAILY PO Last administered on 07/29/16 12: 49; Admin Dose 5 MG; Start 07/28/16 at 09:00 Trimethoprim/ Sulfamethoxazole (Bactrim (Ds)) 1 tab BID GTB Last administered on 07/29/16 08:20; Admin Dose 1 TAB; Start 07/27/16 at 21:00 Hydromorphone HCl (Dilaudid) 1 mg Q1HWA PRN IV PAIN LEVEL 7-10 Last administered on 07/29/16 03:03; Admin Dose 1 MG; Start 07/27/16 at 20:30 Hydromorphone HCl (Dilaudid DIRECTOR OF [employer]ESTHESIA SERVICES) 6 mg Q4H IV Last administered on 07/29/16 09: 26; Admin Dose 6 MG; Start 07/27/16 at 20:30 Dexamethasone (Decadron) 4 mg Q6 IV Last administered on 07/29/16 12:50; Admin Dose 4 MG; Start 07/28/16 at 18:00 Docusate Sodium (Colace) 250 mg HS PO Last administered on 07/28/16 20:21; Admin Dose 250 MG; Start 07/28/16 at 21:00 LINDSAY HARVEY PA-C Jul 29, 2016 13:52
[2016-07-29] MEDS: HYDROmorphONE 1 MG/ML SYG IV PRN ×3 (14:04→21:01)
--- NOTE | 2016-07-29 16:43 | RADRPT ---
PROCEDURE: MRI OF THE CERVICAL SPINE WITHOUT CONTRAST. CLINICAL INDICATION: History of cervical decompression, cervical stenosis. TECHNIQUE: Multiple MRI images were obtained utilizing multiple sequences in the sagittal, axial pl anes. Images were interpreted on a high-resolution PACS system. COMPARISON: None. FINDINGS: Postsurgical changes of posterior decompression with laminectomy from C2-C3 through the C7-T1 are no isabel. The vertebral body heights are preserved. There are no acute fractures. The bone marrow signa l is unremarkable. There is slight kyphosis of the cervical spine. The cord signal is within normal limits. The cervicomedullary junction is unremarkable. The cranioc ervical junction and C1-C2 articulation are intact. The prevertebral are unremarkable. There is a s mall amount of fluid with edema within the posterior paraspinal soft tissues. A small drain is note d traversing across the posterior paraspinal soft tissues at the level of C7-T1 and adjacent to the posterior thecal sac running up to the level of C2. There is also micro metallic artifact within th e posterior paraspinal soft tissue mass. Findings at specific disc levels: There is disk desiccation throughout the cervical spine. C2-3: Normal disk height. No central canal narrowing post midline laminectomy. No neural foramina l narrowing. Mild bilateral facet arthropathy. C3-4: Mild loss of disk height with type 1 endplate changes. Minimal annular bulge and bilateral p osterolateral osseous ridging but no central canal narrowing post midline laminectomy. Severe bilate ral neural foraminal narrowing. Mild bilateral facet arthropathy. C4-5: Mild loss of disk height with anterior endplate osteophytes. Minimal annular bulge and bilat eral posterolateral osseous ridging with mild central canal narrowing post midline laminectomy. Sev ere right and moderate to severe left neural foraminal narrowing. Mild bilateral facet arthropathy. C5-6: Moderate to severe loss of disk height with small anterior endplate osteophytes. Minimal kerry lar bulge and bilateral posterolateral osseous ridging compressing the ventral thecal sac and slight ly indenting the ventral cord with moderate central canal narrowing post midline laminectomy. Severe left and moderate right neural foraminal narrowing. Small right perineural root sleeve cyst. C6-7: Moderate to severe loss of disk height with anterior endplate osteophytes. Minimal annular bu lge and bilateral posterolateral osseous ridging with mild central canal narrowing post midline lami nectomy. Severe left and moderate right neural foraminal narrowing. Small right perineural root sle gentry cyst. C7-T1: Normal disk height. Minimal anterolisthesis. Minimal annular bulge with mild central canal narrowing. Moderate left and mild right neural foraminal narrowing with bilateral perineural root s leeve cysts. Mild bilateral facet arthropathy. There are also perineural root sleeve cysts at T1-T2. RPTAT: ZZ IMPRESSION: 1. Postsurgical changes of posterior decompression from C2-C3 to C7-T1. Edema with a small amount o f fluid within the posterior paraspinal soft tissues with a drain in place but no significant draina ble fluid collection. 2. Moderate to severe degenerative disk disease at C5-C6 with a minimal annular bulge and disk oste ophytes with moderate central canal narrowing. 3. Moderate to severe degenerative disk disease at C6-C7 with mild central canal narrowing. Mild c entral canal narrowing at C4-C5. 4. Multilevel moderate to severe/severe bilateral neural foraminal narrowing at C3-C4 and C4-C5. Se yessy left neural foraminal narrowing at C5-C6 and C6-C7. .Lucinda Sanchez MD, MD Date Time Electronically viewed and signed by .Lucinda Sanchez MD, on 07/29/2016 16:43 .T/
[2016-07-29] MEDS: DOCUSATE SODIUM 250 MG CAP PO SCH (20:00)
[2016-07-29] MEDS: ZOLPIDEM 5 MG TAB PO PRN (23:05)
[2016-07-30] MEDS: HYDROmorphONE 1 MG/ML SYG IV PRN ×6 (00:03→23:09)
[2016-07-30] MEDS: DEXAMETHASONE 4 MG/ML 1 ML INJ IV SCH ×4 (00:24→17:12)
[2016-07-30] MEDS: HYDROCODONE/APAP (10/325) TAB PO PRN ×5 (01:39→20:36)
[2016-07-30] MEDS: PANTOPRAZOLE (EC) 40 MG TAB PO SCH (05:45)
[2016-07-30 07:39] VITALS: BP 119/67; RESP 18
[2016-07-30] MEDS: CYCLOBENZAPRINE 10 MG TAB PO SCH ×3 (08:39→20:36)
[2016-07-30] MEDS: ATENOLOL 25 MG TAB PO SCH (08:39)
[2016-07-30] MEDS: TRIMETHOPRIM/SULFAMETHOX (DS) TAB GTB SCH ×2 (08:39→20:36)
[2016-07-30] MEDS: FLUTICASONE 0.05% 16 GM NAS SPRAY NASAL SCH (08:40)
--- NOTE | 2016-07-30 11:17 | PN ---
Date/Time of Note Date/Time of Note DATE: 07/30/16 TIME: 11:16 Assessment/Plan VTE Prophylaxis VTE Prophylaxis Intervention: other Lines/Catheters IV Catheter Type (from Nrs): Saline Lock Urinary Cath still in place: No Assessment/Plan Chief Complaint/Hosp Course 1. Cervical spinal stenosis with cord compression, status post surgery. Continue to follow-up surgical recommendations. 2. Hypertension. currently normotensive. 3. History of lumbar stenosis, status post surgery. Problems: Subjective 24 Hr Interval Summary Free Text/Dictation Patient still has some pain, but worked with physical therapy and can walk to bathroom Exam/Review of Systems Vital Signs Vitals Vital Signs Date Time Temp Pulse Resp B/P Pulse Ox O2 Delivery O2 Flow Rate FiO2 07/30/16 07:39 98.2 78 18 119/67 99 07/29/16 18:00 Nasal Cannula 3.0 07/28/16 23:50 21 Intake and Output 07/29/16 07/29/16 07/30/16 15:00 23:00 07:00 Intake Total 1050 ml Output Total 30 ml 20 ml 40 ml Balance 1020 ml -20 ml -40 ml Exam Constitutional: well developed Head: atraumatic, normocephalic Neck: supple Respiratory: clear to auscultation Cardiovascular: regular rate and rhythm Gastrointestinal: non-tender, soft Extremities: normal pulses Results Result Diagram: 07/29/16 0506 07/29/16 0506 Medications Medications Current Medications Acetaminophen/ Hydrocodone Bitart ([place] (10/325)) 1 tab Q4H PRN PO PAIN Last administered on 07/30/16 09:43; Admin Dose 1 TAB; Start 07/26/16 at 12:30 Ondansetron HCl (Zofran Inj) 4 mg Q6H PRN IV NAUSEA AND/OR VOMITING Last administered on 07/29/16 03:44; Admin Dose 4 MG; Start 07/26/16 at 12:30 Atenolol (Tenormin) 25 mg DAILY PO Last administered on 07/30/16 08:39; Admin Dose 25 MG; Start 07/27/16 at 09:00 Fluticasone Propionate (Flonase 0.05% Nasal) 1 spray DAILY NASAL Last administered on 07/30/16 08:40; Admin Dose 1 SPRAY; Start 6/8/17 at 09:00 Zolpidem Tartrate (Ambien) 5 mg QHS PRN PO INSOMNIA Last administered on 23:05; Admin Dose 5 MG; Start 07/26/16 at 18:00 Pantoprazole (Protonix Tab) 40 mg DAILY@06 PO Last administered on 07/30/16 05 :45; Admin Dose 40 MG; Start 07/27/16 at 06:00 Hydralazine HCl (Apresoline) 10 mg Q4H PRN IV sbp >150 & dbp>95; Start 07/26/16 at 18:00 Cyclobenzaprine HCl (Flexeril) 10 mg TID PO Last administered on 07/30/16 08: 39; Admin Dose 10 MG; Start 07/27/16 at 13:00 Trimethoprim/ Sulfamethoxazole (Bactrim (Ds)) 1 tab BID GTB Last administered on 07/30/16 08:39; Admin Dose 1 TAB; Start 07/27/16 at 21:00 Dexamethasone (Decadron) 4 mg Q6 IV Last administered on 07/30/16 05:45; Admin Dose 4 MG; Start 07/28/16 at 18:00 Docusate Sodium (Colace) 250 mg HS PO Last administered on 07/29/16 20:00; Admin Dose 250 MG; Start 07/28/16 at 21:00 Hydromorphone HCl (Dilaudid) 1 mg Q3H PRN IV PAIN LEVEL 7-10 Last administered on 07/30/16 06:13; Admin Dose 1 MG; Start 07/29/16 at 16:00 Clonidine (Catapres) 0.1 mg Q6H PRN PO sbp>150; Start 07/29/16 at 14:00 DAWNA SAUNDERS Jul 30, 2016 11:17
[2016-07-30 19:13] VITALS: BP 160/92; RESP 19
[2016-07-30] MEDS: DOCUSATE SODIUM 250 MG CAP PO SCH (20:36)
[2016-07-30] MEDS: ZOLPIDEM 5 MG TAB PO PRN (23:09)
[2016-07-31] MEDS: DEXAMETHASONE 4 MG/ML 1 ML INJ IV SCH ×5 (00:37→23:39)
[2016-07-31] MEDS: HYDROmorphONE 1 MG/ML SYG IV PRN ×5 (02:34→22:30)
[2016-07-31] MEDS: HYDROCODONE/APAP (10/325) TAB PO PRN ×4 (05:02→21:33)
[2016-07-31] MEDS: PANTOPRAZOLE (EC) 40 MG TAB PO SCH (05:02)
[2016-07-31 07:42] VITALS: BP 138/81; RESP 19
[2016-07-31] MEDS: ATENOLOL 25 MG TAB PO SCH (08:26)
[2016-07-31] MEDS: CYCLOBENZAPRINE 10 MG TAB PO SCH ×3 (08:26→20:27)
[2016-07-31] MEDS: TRIMETHOPRIM/SULFAMETHOX (DS) TAB GTB SCH ×2 (08:26→20:27)
[2016-07-31] MEDS: FLUTICASONE 0.05% 16 GM NAS SPRAY NASAL SCH (08:28)
--- NOTE | 2016-07-31 14:04 | CONS ---
Date/Time of Note Date/Time of Note DATE: 07/31/16 TIME: 14:00 Assessment/Plan Assessment/Plan Additional Assessment/Plan seen/examined awake/alert/follows/moves all pt able to able with fww sp cervical decompression cont pt/ot encourage ambulation may go home if jo-ann pain Consultation Date/Type/Reason Admit Date/Time Jul 26, 2016 at 10:25 Exam/Review of Systems Vital Signs Vitals Vital Signs Date Time Temp Pulse Resp B/P Pulse Ox O2 Delivery O2 Flow Rate FiO2 07/31/16 07:42 98.7 89 19 138/81 99 07/30/16 16:03 21 07/29/16 18:00 Nasal Cannula 3.0 Intake and Output 07/30/16 07/30/16 07/31/16 15:00 23:00 07:00 Intake Total 800 ml 1420 ml 750 ml Output Total 1200 ml 530 ml 5 ml Balance -400 ml 890 ml 745 ml Results Result Diagram: 07/29/16 0506 07/29/16 0506 Medications Medications Current Medications Acetaminophen/ Hydrocodone Bitart ([place] (10325)) 1 tab Q4H PRN PO PAIN Last administered on 07/31/16 13:50; Admin Dose 1 TAB; Start 07/26/16 at 12:30 Ondansetron HCl (Zofran Inj) 4 mg Q6H PRN IV NAUSEA AND/OR VOMITING Last administered on 07/29/16 03:44; Admin Dose 4 MG; Start 07/26/16 at 12:30 Atenolol (Tenormin) 25 mg DAILY PO Last administered on 07/31/16 08:26; Admin Dose 25 MG; Start 07/27/16 at 09:00 Fluticasone Propionate (Flonase 0.05% Nasal) 1 spray DAILY NASAL Last administered on 07/31/16 08:28; Admin Dose 1 SPRAY; Start 07/27/16 at 09:00 Zolpidem Tartrate (Ambien) 5 mg QHS PRN PO INSOMNIA Last administered on 23:09; Admin Dose 5 MG; Start 07/26/16 at 18:00 Pantoprazole (Protonix Tab) 40 mg DAILY@06 PO Last administered on 07/31/16 05 :02; Admin Dose 40 MG; Start 07/27/16 at 06:00 Hydralazine HCl (Apresoline) 10 mg Q4H PRN IV sbp >150 & dbp>95; Start 07/26/16 at 18:00 Cyclobenzaprine HCl (Flexeril) 10 mg TID PO Last administered on 07/31/16 08: 26; Admin Dose 10 MG; Start 07/27/16 at 13:00 Trimethoprim/ Sulfamethoxazole (Bactrim (Ds)) 1 tab BID GTB Last administered on 07/31/16 08:26; Admin Dose 1 TAB; Start 07/27/16 at 21:00 Dexamethasone (Decadron) 4 mg Q6 IV Last administered on 07/31/16 12:04; Admin Dose 4 MG; Start 07/28/16 at 18:00 Hydromorphone HCl (Dilaudid) 1 mg Q3H PRN IV PAIN LEVEL 7-10 Last administered on 07/31/16 12:04; Admin Dose 1 MG; Start 07/29/16 at 16:00 Clonidine (Catapres) 0.1 mg Q6H PRN PO sbp>150; Start 07/29/16 at 14:00 Docusate Sodium (Colace) 250 mg BID PO ; Start 07/31/16 at 21:00 Polyethylene Glycol (Miralax) 17 gm DAILY PRN PO CONSTIPATION; Start 07/31/16 at 13:00 Bisacodyl (Dulcolax) 5 mg BID PRN PO CONSTIPATION; Start 07/31/16 at 13:00 LINDSAY HARVEY PA-C Jul 31, 2016 14:04
[2016-07-31] MEDS: POLYETHYLENE GLYCOL 17 GM PACKET PO PRN (14:16)
--- NOTE | 2016-07-31 14:44 | PN ---
Date/Time of Note Date/Time of Note DATE: 07/31/16 TIME: 14:40 Assessment/Plan VTE Prophylaxis VTE Prophylaxis Intervention: SCD's Lines/Catheters IV Catheter Type (from Nrs): Saline Lock Urinary Cath still in place: No Assessment/Plan Chief Complaint/Hosp Course Patient still has significant amount of pain requiring IV Dilaudid, denies any nausea vomiting, encouraged to get out of bed. Patient complains of constipation, will start patient on bowel regimen. Assessment/Plan - Cervical spinal stenosis with cord compression, status post surgery. Continue to follow-up surgical recommendations. - Hypertension. currently normotensive. - History of lumbar stenosis, status post surgery. Further recommendations based on clinical course. Plan of care discussed with Dr. Wade. Problems: Exam/Review of Systems Vital Signs Vitals Vital Signs Date Time Temp Pulse Resp B/P Pulse Ox O2 Delivery O2 Flow Rate FiO2 07/31/16 07:42 98.7 89 19 138/81 99 07/30/16 16:03 21 07/29/16 18:00 Nasal Cannula 3.0 Intake and Output 07/30/16 07/30/16 07/31/16 15:00 23:00 07:00 Intake Total 800 ml 1420 ml 750 ml Output Total 1200 ml 530 ml 5 ml Balance -400 ml 890 ml 745 ml Exam Constitutional: alert Head: normocephalic Neck: other (Status post surgery) Respiratory: clear to auscultation Cardiovascular: nl pulses Gastrointestinal: non-tender, soft Musculoskeletal: nl extremities to inspection Extremities: normal pulses Neurological: nl mental status Results Result Diagram: 07/29/16 0506 07/29/16 0506 Medications Medications Current Medications Acetaminophen/ Hydrocodone Bitart ([place] (10/325)) 1 tab Q4H PRN PO PAIN Last administered on 07/31/16 13:50; Admin Dose 1 TAB; Start 07/26/16 at 12:30 Ondansetron HCl (Zofran Inj) 4 mg Q6H PRN IV NAUSEA AND/OR VOMITING Last administered on 07/29/16 03:44; Admin Dose 4 MG; Start 07/26/16 at 12:30 Atenolol (Tenormin) 25 mg DAILY PO Last administered on 07/31/16 08:26; Admin Dose 25 MG; Start 07/27/16 at 09:00 Fluticasone Propionate (Flonase 0.05% Nasal) 1 spray DAILY NASAL Last administered on 07/31/16 08:28; Admin Dose 1 SPRAY; Start 07/27/16 at 09:00 Zolpidem Tartrate (Ambien) 5 mg QHS PRN PO INSOMNIA Last administered on 23:09; Admin Dose 5 MG; Start 07/26/16 at 18:00 Pantoprazole (Protonix Tab) 40 mg DAILY@06 PO Last administered on 07/31/16 05 :02; Admin Dose 40 MG; Start 07/27/16 at 06:00 Hydralazine HCl (Apresoline) 10 mg Q4H PRN IV sbp >150 & dbp>95; Start 07/26/16 at 18:00 Cyclobenzaprine HCl (Flexeril) 10 mg TID PO Last administered on 07/31/16 08: 26; Admin Dose 10 MG; Start 07/27/16 at 13:00 Trimethoprim/ Sulfamethoxazole (Bactrim (Ds)) 1 tab BID GTB Last administered on 07/31/16 08:26; Admin Dose 1 TAB; Start 07/27/16 at 21:00 Dexamethasone (Decadron) 4 mg Q6 IV Last administered on 07/31/16 12:04; Admin Dose 4 MG; Start 07/28/16 at 18:00 Hydromorphone HCl (Dilaudid) 1 mg Q3H PRN IV PAIN LEVEL 7-10 Last administered on 07/31/16 12:04; Admin Dose 1 MG; Start 07/29/16 at 16:00 Clonidine (Catapres) 0.1 mg Q6H PRN PO sbp>150; Start 07/29/16 at 14:00 Docusate Sodium (Colace) 250 mg BID PO ; Start 07/31/16 at 21:00 Polyethylene Glycol (Miralax) 17 gm DAILY PRN PO CONSTIPATION Last administered on 07/31/16 14:16; Admin Dose 17 GM; Start 07/31/16 at 13:00 Bisacodyl (Dulcolax) 5 mg BID PRN PO CONSTIPATION; Start 07/31/16 at 13:00 DANII PELAEZ Jul 31, 2016 14:44
[2016-07-31 19:34] VITALS: BP 158/93; RESP 17
[2016-07-31] MEDS: DOCUSATE SODIUM 250 MG CAP PO SCH (20:27)
[2016-07-31 22:03] VITALS: BP 157/89; PULSE 58; RESP 20
[2016-07-31] MEDS: ZOLPIDEM 5 MG TAB PO PRN (23:39)
[2016-07-31 23:42] VITALS: BP 158/92; PULSE 54; RESP 18
[2016-07-31 23:45] VITALS: BP 131/72; PULSE 55; RESP 20
[2016-08-01] MEDS: HYDROmorphONE 1 MG/ML SYG IV PRN ×6 (02:23→22:28)
[2016-08-01 05:19] LABS: ADD SCAN DIFF NO
[2016-08-01 05:22] LABS: BASOPHILS % 0.2 % (0.0-2.0); HEMATOCRIT 43.2 % (37.0-47.0); HEMOGLOBIN 14.2 g/dl (12.0-16.0); LYMPHOCYTES # 1.4 10^3/ul (0.8-2.9); LYMPHOCYTES % 15.3 % (15.0-51.0); MEAN CORPUSCULAR HEMOGLOBIN 29.3 pg (29.0-33.0); MEAN CORPUSCULAR HGB CONC 32.9 g/dl (32.0-37.0); MEAN CORPUSCULAR VOLUME 89.3 fl (82.0-101.0); MEAN PLATELET VOLUME 10.4 fl (7.4-10.4); MONOCYTE # 0.5 10^3/ul (0.3-0.9); MONOCYTES % 5.5 % (0.0-11.0); NEUTROPHIL # 7.1 10^3/ul (1.6-7.5); NEUTROPHILS % 76.9 % (39.0-77.0); PLATELET COUNT 280 10^3/UL (140-415); RED BLOOD COUNT 4.84 10^6/ul (4.20-5.40); RED CELL DISTRIBUTION WIDTH 12.4 % (11.5-14.5); WHITE BLOOD COUNT 9.2 10^3/ul (4.8-10.8)
[2016-08-01 05:47] LABS: CALCIUM 9.3 mg/dl (8.4-10.2); CREATININE 0.79 mg/dl (0.44-1.00); POTASSIUM 4.8 mmol/L (3.5-5.1)
[2016-08-01] MEDS: DEXAMETHASONE 4 MG/ML 1 ML INJ IV SCH ×4 (06:03→23:48)
[2016-08-01] MEDS: PANTOPRAZOLE (EC) 40 MG TAB PO SCH (06:03)
[2016-08-01 08:11] VITALS: BP 137/77; RESP 16
[2016-08-01] MEDS: CYCLOBENZAPRINE 10 MG TAB PO SCH ×6 (09:00→20:35)
[2016-08-01] MEDS: ATENOLOL 25 MG TAB PO SCH (09:17)
[2016-08-01] MEDS: TRIMETHOPRIM/SULFAMETHOX (DS) TAB GTB SCH ×2 (09:17→20:35)
[2016-08-01] MEDS: DOCUSATE SODIUM 250 MG CAP PO SCH ×2 (09:17→20:36)
[2016-08-01] MEDS: FLUTICASONE 0.05% 16 GM NAS SPRAY NASAL SCH (09:20)
--- NOTE | 2016-08-01 10:32 | OPR ---
DATE OF OPERATION: 07/26/2016 PREOPERATIVE DIAGNOSIS: 1. Cervical stenosis. 2. Cervical myelopathy. 3. Cervical radiculopathy. 4. Cervical cord compression. POSTOPERATIVE DIAGNOSES: 1. Cervical stenosis. 2. Cervical myelopathy. 3. Cervical radiculopathy. 4. Cervical cord compression. 5. Cervical quadriparesis. PROCEDURE: 1. C3-C4 posterolateral fusion, CPT 76882. 2. C4-C5, C5-C6, C6-C7 additional 3-level posterolateral fusion, CPT 37597 x3. 3. C3 bilateral laminectomy, medial facetectomy and foraminotomy, CPT 15365. 4. C4, C5, C6, C7 additional 4- level bilateral laminectomy, medial [place] [address] x4. SURGEON: Keerthi Cardona MD OFFBEARER: DAVID Frank COMPLICATIONS OF OPERATION: None. ANESTHESIA: General endotracheal. ESTIMATED BLOOD LOSS: Less than 200. COUNTS: Needle counts and sponge counts were correct. SPECIMENS: Multiple fragments of the lamina were sent to pathology. INDICATIONS FOR OPERATION: Please refer to consultation. HISTORY OF PRESENT ILLNESS: Patient is well known to me. The patient is 50 and has been suffering from cervical cord compression, cervical myelopathy and myeloradiculopathy. Risks and benefits of t he operation including anesthesia, infection, bleeding, permanent neurological injury and were explained. The patient agreed to proceed with the operation and signed the consent. PROCEDURE IN DETAIL: The patient was placed in supine position. After adequate general anesthesia was obtained, the patient was turned prone on vertical bolsters cervical region was shaved, prepped and draped in normal sterile fashion. Patient received antibiotics, Decadron prior to the operation . Skin was infiltrated with lidocaine with epinephrine solution, was opened with a #10 blade, was burrows ied past the cervical fascia to the lamina of C3 all the way to C7 where lateral masses were identif ied. At this time, the high-speed Midas Marlo drill was utilized to complete decorticated the bone to thin down the lamina of C3 all the way to C7. The bone was harvested in the Lukens trap for further fusi on. Laminectomy of, C3, C4, C5, C6 and C7 a total of 5 levels was done with double action rongeur a nd Kerrison punches with #3 and #4, with medial facetectomy and foraminotomy at each level of C3-4, C4-C5 C5-C6 and C6-C7 bilaterally, decompressing the nerve roots and decompressing the central canal and spinal monitoring showed improvement of signal throughout. The lateral mass of C3, C4, C5, C6 and C7 was completely decorticated with high-speed Midas Marlo dril l preparing it for fusion. Gelfoam was placed over the dura to stop any bleeding. Following this, I started the posterolateral fusion of the cervical spine. The bone that was harves isabel via Lukens strap was washed and then packed and was placed as an onlay graft from C3 to C7, achi eving posterolateral fusion. The area was irrigated with bacitracin saline solution. Medium sized Hemovac drain was placed in the wound exiting from the skin through a separate stab incision. The c losure of the wound was done with #1 Vicryl for cervical fascia, 2-0 and 3-0 Vicryl for subcutaneous tissue and dermis with Steri-Strips for the skin. Patient tolerated the procedure well, was taken to postanesthesia recovery in stable condition, following commands, moving all muscle groups of the upper and lower extremities. Dictated By: KEERTHI SIMPSON/MAL Conf#: [id number] DID#: [id number]
[2016-08-01] MEDS: HYDROCODONE/APAP (10/325) TAB PO PRN ×2 (10:39→19:42)
--- NOTE | 2016-08-01 18:04 | PN ---
Date/Time of Note Date/Time of Note DATE: 08/01/16 TIME: 18:03 Assessment/Plan VTE Prophylaxis VTE Prophylaxis Intervention: SCD's Lines/Catheters IV Catheter Type (from [facility]): Saline Lock Urinary Cath still in place: No Assessment/Plan Chief Complaint/Hosp Course Patient status status post surgical drain DC'd and dressing change, complaints of pain and headache, denies nausea vomiting. Assessment/Plan - Cervical spinal stenosis with cord compression, status post surgery. Continue to follow-up surgical recommendations. - Hypertension. currently normotensive. - History of lumbar stenosis, status post surgery. Acute rehab eval. Further recommendations based on clinical course. Plan of care discussed with Dr. Wade. Problems: Exam/Review of Systems Vital Signs Vitals Vital Signs Date Time Temp Pulse Resp B/P Pulse Ox O2 Delivery O2 Flow Rate FiO2 08/01/16 08:11 98.3 53 16 137/77 95 07/31/16 23:45 Room Air 07/30/16 16:03 21 07/29/16 18:00 3.0 Intake and Output 07/31/16 07/31/16 08/01/16 15:00 23:00 07:00 Intake Total 1760 ml 650 ml Output Total 400 ml Balance 1360 ml 650 ml Exam Constitutional: alert Head: normocephalic Neck: other (Status post surgery) Respiratory: clear to auscultation Cardiovascular: nl pulses Gastrointestinal: non-tender, soft Musculoskeletal: nl extremities to inspection Extremities: normal pulses Neurological: nl mental status Results Result Diagram: 08/01/16 0433 08/01/16 0433 Results 24 hrs Laboratory Tests Test 08/01/16 04:33 White Blood Count 9.2 # Red Blood Count 4.84 Hemoglobin 14.2 Hematocrit 43.2 Mean Corpuscular Volume 89.3 Mean Corpuscular Hemoglobin 29.3 Mean Corpuscular Hemoglobin Concent 32.9 Red Cell Distribution Width 12.4 Platelet Count 280 Mean Platelet Volume 10.4 Neutrophils % 76.9 Lymphocytes % 15.3 Monocytes % 5.5 Eosinophils % 0.0 Basophils % 0.2 Nucleated Red Blood Cells % 0.0 Neutrophils # 7.1 Lymphocytes # 1.4 Monocytes # 0.5 Eosinophils # 0.0 Basophils # 0.0 Nucleated Red Blood Cells # 0.0 Sodium Level 139 Potassium Level 4.8 Chloride Level 104 Carbon Dioxide Level 28 Anion Gap 12 Blood Urea Nitrogen 16 Creatinine 0.79 Glucose Level 133 Calcium Level 9.3 Medications Medications Current Medications Acetaminophen/ Hydrocodone Bitart ([place] (10/325)) 1 tab Q4H PRN PO PAIN Last administered on 08/01/16 10:39; Admin Dose 1 TAB; Start 07/26/16 at 12:30 Ondansetron HCl (Zofran Inj) 4 mg Q6H PRN IV NAUSEA AND/OR VOMITING Last administered on 07/29/16 03:44; Admin Dose 4 MG; Start 07/26/16 at 12:30 Atenolol (Tenormin) 25 mg DAILY PO Last administered on 08/01/16 09:17; Admin Dose 25 MG; Start 07/27/16 at 09:00 Fluticasone Propionate (Flonase 0.05% Nasal) 1 spray DAILY NASAL Last administered on 08/01/16 09:20; Admin Dose 1 SPRAY; Start 07/27/16 at 09:00 Zolpidem Tartrate (Ambien) 5 mg QHS PRN PO INSOMNIA Last administered on 23:39; Admin Dose 5 MG; Start 07/26/16 at 18:00 Pantoprazole (Protonix Tab) 40 mg DAILY@06 PO Last administered on 08/01/16 06 :03; Admin Dose 40 MG; Start 07/27/16 at 06:00 Hydralazine HCl (Apresoline) 10 mg Q4H PRN IV sbp >150 & dbp>95; Start 07/26/16 at 18:00 Cyclobenzaprine HCl (Flexeril) 10 mg TID PO Last administered on 08/01/16 15: 17; Admin Dose 10 MG; Start 07/27/16 at 13:00 Trimethoprim/ Sulfamethoxazole (Bactrim (Ds)) 1 tab BID GTB Last administered on 08/01/16 09:17; Admin Dose 1 TAB; Start 07/27/16 at 21:00 Dexamethasone (Decadron) 4 mg Q6 IV Last administered on 08/01/16 12:46; Admin Dose 4 MG; Start 07/28/16 at 18:00 Hydromorphone HCl (Dilaudid) 1 mg Q3H PRN IV PAIN LEVEL 7-10 Last administered on 08/01/16 12:50; Admin Dose 1 MG; Start 07/29/16 at 16:00 Clonidine (Catapres) 0.1 mg Q6H PRN PO sbp>150 Last administered on 07/31/16 22:07; Admin Dose 0.1 MG; Start 07/29/16 at 14:00 Docusate Sodium (Colace) 250 mg BID PO Last administered on 08/01/16 09:17; Admin Dose 250 MG; Start 07/31/16 at 21:00 Polyethylene Glycol (Miralax) 17 gm DAILY PRN PO CONSTIPATION Last administered on 07/31/16 14:16; Admin Dose 17 GM; Start 07/31/16 at 13:00 Bisacodyl (Dulcolax) 5 mg BID PRN PO CONSTIPATION; Start 07/31/16 at 13:00 DANII PELAEZ Aug 01, 2016 18:04
[2016-08-01] MEDS: BISACODYL (EC) 5 MG TAB PO PRN (18:09)
[2016-08-01] MEDS: POLYETHYLENE GLYCOL 17 GM PACKET PO PRN (18:10)
[2016-08-01 19:10] VITALS: BP 139/99; RESP 19
[2016-08-01] MEDS: ZOLPIDEM 5 MG TAB PO PRN (23:48)
[2016-08-02] MEDS: HYDROmorphONE 1 MG/ML SYG IV PRN ×6 (01:53→21:36)
[2016-08-02] MEDS: CYCLOBENZAPRINE 10 MG TAB PO SCH ×4 (03:34→20:38)
[2016-08-02 04:55] LABS: ADD SCAN DIFF NO
[2016-08-02 05:10] LABS: BASOPHILS % 0.3 % (0.0-2.0); LYMPHOCYTES # 1.8 10^3/ul (0.8-2.9); LYMPHOCYTES % 12.4 % (15.0-51.0); MEAN CORPUSCULAR HEMOGLOBIN 29.8 pg (29.0-33.0); MEAN CORPUSCULAR HGB CONC 33.3 g/dl (32.0-37.0); MEAN CORPUSCULAR VOLUME 89.3 fl (82.0-101.0); MEAN PLATELET VOLUME 10.4 fl (7.4-10.4); MONOCYTE # 0.8 10^3/ul (0.3-0.9); MONOCYTES % 5.6 % (0.0-11.0); NEUTROPHIL # 11.2 10^3/ul (1.6-7.5); NEUTROPHILS % 79.6 % (39.0-77.0); PLATELET COUNT 343 10^3/UL (140-415); RED BLOOD COUNT 5.04 10^6/ul (4.20-5.40); RED CELL DISTRIBUTION WIDTH 12.6 % (11.5-14.5); WHITE BLOOD COUNT 14.1 10^3/ul (4.8-10.8)
[2016-08-02] MEDS: PANTOPRAZOLE (EC) 40 MG TAB PO SCH (05:39)
[2016-08-02] MEDS: DEXAMETHASONE 4 MG/ML 1 ML INJ IV SCH ×4 (05:39→23:19)
[2016-08-02 05:50] LABS: CALCIUM 8.6 mg/dl (8.4-10.2); CREATININE 0.82 mg/dl (0.44-1.00); POTASSIUM 4.9 mmol/L (3.5-5.1)
[2016-08-02 07:34] VITALS: BP 114/74; RESP 18
[2016-08-02] MEDS: FLUTICASONE 0.05% 16 GM NAS SPRAY NASAL SCH ×2 (09:00→13:18)
[2016-08-02] MEDS: TRIMETHOPRIM/SULFAMETHOX (DS) TAB GTB SCH ×2 (09:24→20:38)
[2016-08-02] MEDS: ATENOLOL 25 MG TAB PO SCH (09:24)
[2016-08-02] MEDS: DOCUSATE SODIUM 250 MG CAP PO SCH ×2 (09:24→20:38)
[2016-08-02] MEDS: HYDROCODONE/APAP (10/325) TAB PO PRN ×3 (10:52→20:37)
[2016-08-02] MEDS: BISACODYL (EC) 5 MG TAB PO PRN (13:54)
[2016-08-02] MEDS: POLYETHYLENE GLYCOL 17 GM PACKET PO PRN (13:54)
--- NOTE | 2016-08-02 15:16 | PN ---
Date/Time of Note Date/Time of Note DATE: 08/02/16 TIME: 15:14 Assessment/Plan VTE Prophylaxis VTE Prophylaxis Intervention: SCD's Lines/Catheters IV Catheter Type (from Nrs): Saline Lock Urinary Cath still in place: No Assessment/Plan Chief Complaint/Hosp Course Patient still has large amount of pain requiring IV Dilaudid, patient denies any nausea vomiting, I did not accepted to acute rehab due to high functioning, anticipate to discharge home with home health tomorrow, discussed with patient. Assessment/Plan - Cervical spinal stenosis with cord compression, status post surgery. Continue to follow-up surgical recommendations. - Hypertension. currently normotensive. - History of lumbar stenosis, status post surgery. Further recommendations based on clinical course. Plan of care discussed with Dr. Wade. Problems: Exam/Review of Systems Vital Signs Vitals Vital Signs Date Time Temp Pulse Resp B/P Pulse Ox O2 Delivery O2 Flow Rate FiO2 08/02/16 07:34 98.5 79 18 114/74 99 07/31/16 23:45 Room Air 07/30/16 16:03 21 07/29/16 18:00 3.0 Intake and Output 08/01/16 08/01/16 08/02/16 14:59 22:59 06:59 Intake Total 1140 ml 600 ml Balance 1140 ml 600 ml Exam Constitutional: alert Head: normocephalic Neck: other (Status post surgery) Respiratory: clear to auscultation Cardiovascular: nl pulses Gastrointestinal: non-tender, soft Musculoskeletal: nl extremities to inspection Extremities: normal pulses Neurological: nl mental status Results Result Diagram: 08/02/16 0419 08/02/16 0419 Results 24 hrs Laboratory Tests Test 08/02/16 04:19 White Blood Count 14.1 #H Red Blood Count 5.04 Hemoglobin 15.0 Hematocrit 45.0 Mean Corpuscular Volume 89.3 Mean Corpuscular Hemoglobin 29.8 Mean Corpuscular Hemoglobin Concent 33.3 Red Cell Distribution Width 12.6 Platelet Count 343 # Mean Platelet Volume 10.4 Neutrophils % 79.6 H Lymphocytes % 12.4 L Monocytes % 5.6 Eosinophils % 0.0 Basophils % 0.3 Nucleated Red Blood Cells % 0.0 Neutrophils # 11.2 H Lymphocytes # 1.8 Monocytes # 0.8 Eosinophils # 0.0 Basophils # 0.0 Nucleated Red Blood Cells # 0.0 Sodium Level 135 Potassium Level 4.9 Chloride Level 102 Carbon Dioxide Level 25 Anion Gap 13 Blood Urea Nitrogen 15 Creatinine 0.82 Glucose Level 179 Calcium Level 8.6 Medications Medications Current Medications Acetaminophen/ Hydrocodone Bitart ([place] (10/325)) 1 tab Q4H PRN PO PAIN Last administered on 08/02/16 10:52; Admin Dose 1 TAB; Start 07/26/16 at 12:30 Ondansetron HCl (Zofran Inj) 4 mg Q6H PRN IV NAUSEA AND/OR VOMITING Last administered on 07/29/16 03:44; Admin Dose 4 MG; Start 07/26/16 at 12:30 Atenolol (Tenormin) 25 mg DAILY PO Last administered on 08/02/16 09:24; Admin Dose 25 MG; Start 07/27/16 at 09:00 Fluticasone Propionate (Flonase 0.05% Nasal) 1 spray DAILY NASAL Last administered on 08/02/16 13:18; Admin Dose 1 SPRAY; Start 07/27/16 at 09:00 Zolpidem Tartrate (Ambien) 5 mg QHS PRN PO INSOMNIA Last administered on 23:48; Admin Dose 5 MG; Start 07/26/16 at 18:00 Pantoprazole (Protonix Tab) 40 mg DAILY@06 PO Last administered on 08/02/16 05 :39; Admin Dose 40 MG; Start 07/27/16 at 06:00 Hydralazine HCl (Apresoline) 10 mg Q4H PRN IV sbp >150 & dbp>95; Start 07/26/16 at 18:00 Cyclobenzaprine HCl (Flexeril) 10 mg TID PO Last administered on 08/02/16 10: 53; Admin Dose 10 MG; Start 07/27/16 at 13:00 Trimethoprim/ Sulfamethoxazole (Bactrim (Ds)) 1 tab BID GTB Last administered on 08/02/16 09:24; Admin Dose 1 TAB; Start 07/27/16 at 21:00 Dexamethasone (Decadron) 4 mg Q6 IV Last administered on 08/02/16 13:18; Admin Dose 4 MG; Start 07/28/16 at 18:00 Hydromorphone HCl (Dilaudid) 1 mg Q3H PRN IV PAIN LEVEL 7-10 Last administered on 08/02/16 13:33; Admin Dose 1 MG; Start 07/29/16 at 16:00 Clonidine (Catapres) 0.1 mg Q6H PRN PO sbp>150 Last administered on 07/31/16 22:07; Admin Dose 0.1 MG; Start 07/29/16 at 14:00 Docusate Sodium (Colace) 250 mg BID PO Last administered on 08/02/16 09:24; Admin Dose 250 MG; Start 07/31/16 at 21:00 Polyethylene Glycol (Miralax) 17 gm DAILY PRN PO CONSTIPATION Last administered on 08/02/16 13:54; Admin Dose 17 GM; Start 07/31/16 at 13:00 Bisacodyl (Dulcolax) 5 mg BID PRN PO CONSTIPATION Last administered on 13:54; Admin Dose 5 MG; Start 07/31/16 at 13:00 DANII PELAEZ Aug 02, 2016 15:16
[2016-08-02 20:15] VITALS: BP 126/77; RESP 19
[2016-08-02] MEDS: ZOLPIDEM 5 MG TAB PO PRN (23:19)
[2016-08-03] MEDS: HYDROmorphONE 1 MG/ML SYG IV PRN ×7 (01:38→23:30)
[2016-08-03] MEDS: DEXAMETHASONE 4 MG/ML 1 ML INJ IV SCH ×3 (05:07→21:15)
[2016-08-03] MEDS: PANTOPRAZOLE (EC) 40 MG TAB PO SCH (05:07)
[2016-08-03 08:27] VITALS: BP 127/83; RESP 16
[2016-08-03] MEDS: TRIMETHOPRIM/SULFAMETHOX (DS) TAB GTB SCH ×2 (08:47→21:15)
[2016-08-03] MEDS: DOCUSATE SODIUM 250 MG CAP PO SCH ×2 (08:47→21:15)
[2016-08-03] MEDS: HYDROCODONE/APAP (10/325) TAB PO PRN (08:47)
[2016-08-03] MEDS: ATENOLOL 25 MG TAB PO SCH (08:48)
[2016-08-03] MEDS: FLUTICASONE 0.05% 16 GM NAS SPRAY NASAL SCH (08:49)
[2016-08-03] MEDS ORDERED: BISACODYL 10 MG SUPP PR ONE (09:00)
[2016-08-03] MEDS: CYCLOBENZAPRINE 10 MG TAB PO SCH ×3 (09:00→21:15)
[2016-08-03] MEDS ORDERED: NA PHOSPHATE/BIPHOS 133 ML ENEMA PR ONE (12:00)
--- NOTE | 2016-08-03 15:15 | PN ---
Date/Time of Note Date/Time of Note DATE: 08/03/16 TIME: 15:13 Assessment/Plan VTE Prophylaxis VTE Prophylaxis Intervention: other Lines/Catheters IV Catheter Type (from Nrsg): Saline Lock Urinary Cath still in place: No Assessment/Plan Assessment/Plan - Cervical spinal stenosis with cord compression, status post surgery. - per neurosx - pain control - Hypertension. currently normotensive. - History of lumbar stenosis, status post surgery. Further recommendations based on clinical course. Plan of care discussed with Dr. Wade. Subjective 24 Hr Interval Summary Cardiovascular: no complaints Gastrointestinal: no complaints Genitourinary: no complaints Musculoskeletal: back pain Neurologic: no complaints Endocrine: no complaints Exam/Review of Systems Vital Signs Vitals Vital Signs Date Time Temp Pulse Resp B/P Pulse Ox O2 Delivery O2 Flow Rate FiO2 08/03/16 08:27 98.0 65 16 127/83 96 07/31/16 23:45 Room Air 07/30/16 16:03 21 Intake and Output 08/02/16 08/02/16 08/03/16 15:00 23:00 07:00 Intake Total 2000 ml 750 ml Output Total 1100 ml Balance 900 ml 750 ml Exam Constitutional: alert, oriented, well developed Respiratory: clear to auscultation, normal air movement Cardiovascular: nl pulses, regular rate and rhythm Gastrointestinal: non-tender, soft Musculoskeletal: nl extremities to inspection Extremities: normal pulses Neurological: nl mental status, nl speech Skin: other (sp cervical surgery-DDI) Results Result Diagram: 08/02/16 0419 08/02/16 0419 Medications Medications Current Medications Acetaminophen/ Hydrocodone Bitart ([place] (10/325)) 1 tab Q4H PRN PO PAIN Last administered on 08/03/16 08:47; Admin Dose 1 TAB; Start 07/26/16 at 12:30 Ondansetron HCl (Zofran Inj) 4 mg Q6H PRN IV NAUSEA AND/OR VOMITING Last administered on 07/29/16 03:44; Admin Dose 4 MG; Start 07/26/16 at 12:30 Atenolol (Tenormin) 25 mg DAILY PO Last administered on 08/03/16 08:48; Admin Dose 25 MG; Start 07/27/16 at 09:00 Fluticasone Propionate (Flonase 0.05% Nasal) 1 spray DAILY NASAL Last administered on 08/03/16 08:49; Admin Dose 1 SPRAY; Start 07/27/16 at 09:00 Zolpidem Tartrate (Ambien) 5 mg QHS PRN PO INSOMNIA Last administered on 23:19; Admin Dose 5 MG; Start 07/26/16 at 18:00 Pantoprazole (Protonix Tab) 40 mg DAILY@06 PO Last administered on 08/03/16 05 :07; Admin Dose 40 MG; Start 07/27/16 at 06:00 Hydralazine HCl (Apresoline) 10 mg Q4H PRN IV sbp >150 & dbp>95; Start 07/26/16 at 18:00 Cyclobenzaprine HCl (Flexeril) 10 mg TID PO Last administered on 08/03/16 11: 51; Admin Dose 10 MG; Start 07/27/16 at 13:00 Trimethoprim/ Sulfamethoxazole (Bactrim (Ds)) 1 tab BID GTB Last administered on 08/03/16 08:47; Admin Dose 1 TAB; Start 07/27/16 at 21:00 Dexamethasone (Decadron) 4 mg Q6 IV Last administered on 08/03/16 11:51; Admin Dose 4 MG; Start 07/28/16 at 18:00 Hydromorphone HCl (Dilaudid) 1 mg Q3H PRN IV PAIN LEVEL 7-10 Last administered on 08/03/16 12:52; Admin Dose 1 MG; Start 07/29/16 at 16:00 Clonidine (Catapres) 0.1 mg Q6H PRN PO sbp>150 Last administered on 07/31/16 22:07; Admin Dose 0.1 MG; Start 07/29/16 at 14:00 Docusate Sodium (Colace) 250 mg BID PO Last administered on 08/03/16 08:47; Admin Dose 250 MG; Start 07/31/16 at 21:00 Polyethylene Glycol (Miralax) 17 gm DAILY PRN PO CONSTIPATION Last administered on 08/02/16 13:54; Admin Dose 17 GM; Start 07/31/16 at 13:00 Bisacodyl (Dulcolax) 5 mg BID PRN PO CONSTIPATION Last administered on 13:54; Admin Dose 5 MG; Start 07/31/16 at 13:00 ANGLE GONZALEZ Aug 03, 2016 15:15
--- NOTE | 2016-08-03 17:43 | PN ---
DATE: 08/03/2016 ADDENDUM SUBJECTIVE: I spoke with Dr. Cardona's physician academic affairs assistant and will start tapering her steroids. W e will also start her on OxyContin which patient states she has taken as an outpatient and does not have any side effects. Once she has been reasonably controlled on oral medication, she will be disc harged home. Dictated By: ISIAH GRANT/MAL Conf#: [id number] DID#: [id number]
[2016-08-03 19:00] VITALS: BP 136/97; RESP 19
[2016-08-03] MEDS: oxyCODONE (CR) 20 MG TAB [oxyCONTIN] PO SCH (21:15)
[2016-08-03] MEDS: ZOLPIDEM 5 MG TAB PO PRN (22:13)
[2016-08-04] MEDS: HYDROmorphONE 1 MG/ML SYG IV PRN ×6 (02:27→19:45)
[2016-08-04 05:13] LABS: ADD SCAN DIFF NO
[2016-08-04 05:25] LABS: BASOPHIL # 0.1 10^3/ul (0.0-0.1); BASOPHILS % 0.4 % (0.0-2.0); EOSINOPHILS % 0.1 % (0.0-7.0); HEMATOCRIT 43.9 % (37.0-47.0); HEMOGLOBIN 14.5 g/dl (12.0-16.0); LYMPHOCYTES # 2.2 10^3/ul (0.8-2.9); LYMPHOCYTES % 14.7 % (15.0-51.0); MEAN CORPUSCULAR HEMOGLOBIN 29.7 pg (29.0-33.0); MEAN PLATELET VOLUME 10.3 fl (7.4-10.4); MONOCYTE # 0.9 10^3/ul (0.3-0.9); MONOCYTES % 6.3 % (0.0-11.0); NEUTROPHILS % 75.2 % (39.0-77.0); PLATELET COUNT 313 10^3/UL (140-415); RED BLOOD COUNT 4.88 10^6/ul (4.20-5.40); RED CELL DISTRIBUTION WIDTH 12.9 % (11.5-14.5); WHITE BLOOD COUNT 14.7 10^3/ul (4.8-10.8)
[2016-08-04 05:42] LABS: CREATININE 0.8 mg/dl (0.44-1.00); POTASSIUM 5.2 mmol/L (3.5-5.1)
[2016-08-04] MEDS: DEXAMETHASONE 4 MG/ML 1 ML INJ IV SCH ×3 (06:24→22:23)
[2016-08-04] MEDS: PANTOPRAZOLE (EC) 40 MG TAB PO SCH (06:24)
[2016-08-04] MEDS: HYDROCODONE/APAP (10/325) TAB PO PRN (06:26)
[2016-08-04 07:00] VITALS: BP 128/79; RESP 18
[2016-08-04] MEDS: oxyCODONE (CR) 20 MG TAB [oxyCONTIN] PO SCH ×2 (08:33→21:13)
[2016-08-04] MEDS: DOCUSATE SODIUM 250 MG CAP PO SCH ×2 (08:33→21:12)
[2016-08-04] MEDS: FLUTICASONE 0.05% 16 GM NAS SPRAY NASAL SCH (08:33)
[2016-08-04] MEDS: TRIMETHOPRIM/SULFAMETHOX (DS) TAB GTB SCH ×2 (08:33→21:13)
[2016-08-04] MEDS: ATENOLOL 25 MG TAB PO SCH (08:34)
[2016-08-04] MEDS: CYCLOBENZAPRINE 10 MG TAB PO SCH ×3 (08:58→21:12)
--- NOTE | 2016-08-04 17:41 | PN ---
Date/Time of Note Date/Time of Note DATE: 08/04/16 TIME: 17:35 Assessment/Plan VTE Prophylaxis VTE Prophylaxis Intervention: SCD's Lines/Catheters IV Catheter Type (from Nrs): Saline Lock Urinary Cath still in place: No Assessment/Plan Chief Complaint/Hosp Course Patient complains of pain requiring IV Dilaudid, started on OxyContin. Assessment/Plan - Cervical spinal stenosis with cord compression, status post surgery. Continue to follow-up surgical recommendations. - Hypertension. currently normotensive. - History of lumbar stenosis, status post surgery. Further recommendations based on clinical course. Plan of care discussed with Dr. Wade. Problems: Exam/Review of Systems Vital Signs Vitals Vital Signs Date Time Temp Pulse Resp B/P Pulse Ox O2 Delivery O2 Flow Rate FiO2 08/04/16 07:00 97.7 76 18 128/79 96 07/31/16 23:45 Room Air Intake and Output 08/03/16 08/03/16 08/04/16 15:00 23:00 07:00 Intake Total 1100 ml 750 ml Balance 1100 ml 750 ml Exam Constitutional: alert Head: normocephalic Neck: other (Status post surgery) Respiratory: clear to auscultation Cardiovascular: nl pulses Gastrointestinal: non-tender, soft Musculoskeletal: nl extremities to inspection Extremities: normal pulses Neurological: nl mental status Results Result Diagram: 08/04/16 0430 08/04/16 0430 Results 24 hrs Laboratory Tests Test 08/04/16 04:30 White Blood Count 14.7 H Red Blood Count 4.88 Hemoglobin 14.5 Hematocrit 43.9 Mean Corpuscular Volume 90.0 Mean Corpuscular Hemoglobin 29.7 Mean Corpuscular Hemoglobin Concent 33.0 Red Cell Distribution Width 12.9 Platelet Count 313 Mean Platelet Volume 10.3 Neutrophils % 75.2 Lymphocytes % 14.7 L Monocytes % 6.3 Eosinophils % 0.1 Basophils % 0.4 Nucleated Red Blood Cells % 0.0 Neutrophils # 11.0 H Lymphocytes # 2.2 Monocytes # 0.9 Eosinophils # 0.0 Basophils # 0.1 Nucleated Red Blood Cells # 0.0 Sodium Level 136 Potassium Level 5.2 H Chloride Level 101 Carbon Dioxide Level 28 Anion Gap 12 Blood Urea Nitrogen 18 Creatinine 0.80 Glucose Level 138 Calcium Level 9.0 Medications Medications Current Medications Acetaminophen/ Hydrocodone Bitart ([place] (10/325)) 1 tab Q4H PRN PO PAIN Last administered on 08/04/16 06:26; Admin Dose 1 TAB; Start 07/26/16 at 12:30 Ondansetron HCl (Zofran Inj) 4 mg Q6H PRN IV NAUSEA AND/OR VOMITING Last administered on 07/29/16 03:44; Admin Dose 4 MG; Start 07/26/16 at 12:30 Atenolol (Tenormin) 25 mg DAILY PO Last administered on 08/04/16 08:34; Admin Dose 25 MG; Start 07/27/16 at 09:00 Fluticasone Propionate (Flonase 0.05% Nasal) 1 spray DAILY NASAL Last administered on 08/04/16 08:33; Admin Dose 1 SPRAY; Start 07/27/16 at 09:00 Zolpidem Tartrate (Ambien) 5 mg QHS PRN PO INSOMNIA Last administered on 22:13; Admin Dose 5 MG; Start 07/26/16 at 18:00 Pantoprazole (Protonix Tab) 40 mg DAILY@06 PO Last administered on 08/04/16 06 :24; Admin Dose 40 MG; Start 07/27/16 at 06:00 Hydralazine HCl (Apresoline) 10 mg Q4H PRN IV sbp >150 & dbp>95; Start 07/26/16 at 18:00 Cyclobenzaprine HCl (Flexeril) 10 mg TID PO Last administered on 08/04/16 13: 09; Admin Dose 10 MG; Start 07/27/16 at 13:00 Trimethoprim/ Sulfamethoxazole (Bactrim (Ds)) 1 tab BID GTB Last administered on 08/04/16 08:33; Admin Dose 1 TAB; Start 07/27/16 at 21:00 Hydromorphone HCl (Dilaudid) 1 mg Q3H PRN IV PAIN LEVEL 7-10 Last administered on 08/04/16 16:42; Admin Dose 1 MG; Start 07/29/16 at 16:00 Clonidine (Catapres) 0.1 mg Q6H PRN PO sbp>150 Last administered on 07/31/16 22:07; Admin Dose 0.1 MG; Start 07/29/16 at 14:00 Docusate Sodium (Colace) 250 mg BID PO Last administered on 08/04/16 08:33; Admin Dose 250 MG; Start 07/31/16 at 21:00 Polyethylene Glycol (Miralax) 17 gm DAILY PRN PO CONSTIPATION Last administered on 08/02/16 13:54; Admin Dose 17 GM; Start 07/31/16 at 13:00 Bisacodyl (Dulcolax) 5 mg BID PRN PO CONSTIPATION Last administered on 13:54; Admin Dose 5 MG; Start 07/31/16 at 13:00 Dexamethasone (Decadron) 4 mg Q8 IV Last administered on 08/04/16 13:09; Admin Dose 4 MG; Start 08/03/16 at 22:00 Oxycodone HCl (Oxycontin) 20 mg BID PO Last administered on 08/04/16 08:33; Admin Dose 20 MG; Start 08/03/16 at 21:00 DANII PELAEZ Aug 04, 2016 17:41
[2016-08-04 19:00] VITALS: BP 127/78; RESP 19
[2016-08-04] MEDS: ZOLPIDEM 5 MG TAB PO PRN (22:27)
[2016-08-05] MEDS: HYDROmorphONE 1 MG/ML SYG IV PRN ×7 (02:38→22:22)
[2016-08-05] MEDS: PANTOPRAZOLE (EC) 40 MG TAB PO SCH (05:55)
[2016-08-05] MEDS: DEXAMETHASONE 4 MG/ML 1 ML INJ IV SCH ×3 (05:55→23:28)
[2016-08-05 07:00] VITALS: BP 131/75; RESP 20
[2016-08-05 07:09] LABS: ADD SCAN DIFF NO
[2016-08-05 07:16] LABS: BASOPHIL # 0.1 10^3/ul (0.0-0.1); BASOPHILS % 0.5 % (0.0-2.0); EOSINOPHILS % 0.2 % (0.0-7.0); HEMATOCRIT 48.8 % (37.0-47.0); HEMOGLOBIN 15.7 g/dl (12.0-16.0); LYMPHOCYTES # 2.6 10^3/ul (0.8-2.9); LYMPHOCYTES % 15.7 % (15.0-51.0); MEAN CORPUSCULAR HEMOGLOBIN 29.5 pg (29.0-33.0); MEAN CORPUSCULAR HGB CONC 32.2 g/dl (32.0-37.0); MEAN CORPUSCULAR VOLUME 91.7 fl (82.0-101.0); MEAN PLATELET VOLUME 9.8 fl (7.4-10.4); NEUTROPHIL # 12.3 10^3/ul (1.6-7.5); PLATELET COUNT 374 10^3/UL (140-415); RED BLOOD COUNT 5.32 10^6/ul (4.20-5.40); RED CELL DISTRIBUTION WIDTH 13.2 % (11.5-14.5); WHITE BLOOD COUNT 16.6 10^3/ul (4.8-10.8)
[2016-08-05 07:37] LABS: CALCIUM 9.4 mg/dl (8.4-10.2); CREATININE 0.86 mg/dl (0.44-1.00); POTASSIUM 4.8 mmol/L (3.5-5.1)
[2016-08-05] MEDS: oxyCODONE (CR) 20 MG TAB [oxyCONTIN] PO SCH ×2 (08:15→21:17)
[2016-08-05] MEDS: DOCUSATE SODIUM 250 MG CAP PO SCH ×2 (08:15→21:16)
[2016-08-05] MEDS: TRIMETHOPRIM/SULFAMETHOX (DS) TAB GTB SCH (08:15)
[2016-08-05] MEDS: FLUTICASONE 0.05% 16 GM NAS SPRAY NASAL SCH (08:16)
[2016-08-05] MEDS: ATENOLOL 25 MG TAB PO SCH (08:16)
[2016-08-05] MEDS: CYCLOBENZAPRINE 10 MG TAB PO SCH ×3 (08:36→21:16)
[2016-08-05] MEDS: HYDROCODONE/APAP (10/325) TAB PO PRN ×2 (14:48→19:32)
[2016-08-05 19:00] VITALS: BP 132/80; RESP 18
--- NOTE | 2016-08-05 20:45 | PN ---
Date/Time of Note Date/Time of Note DATE: 08/05/16 TIME: 17:37 Assessment/Plan Lines/Catheters IV Catheter Type (from Nrsg): Saline Lock Urinary Cath still in place: No Assessment/Plan Assessment/Plan - Cervical spinal stenosis with cord compression, status post surgery. Continue to follow-up surgical recommendations. - Hypertension. currently normotensive. - History of lumbar stenosis, status post surgery. Further recommendations based on clinical course. Plan of care discussed with Dr. Wade. Subjective 24 Hr Interval Summary Gastrointestinal: no complaints Genitourinary: no complaints Musculoskeletal: back pain Exam/Review of Systems Vital Signs Vitals Vital Signs Date Time Temp Pulse Resp B/P Pulse Ox O2 Delivery O2 Flow Rate FiO2 08/05/16 07:00 97.9 60 20 131/75 96 Intake and Output 08/04/16 08/04/16 08/05/16 15:00 23:00 07:00 Intake Total 1500 ml 1100 ml Balance 1500 ml 1100 ml Exam Constitutional: alert, oriented, well developed Respiratory: clear to auscultation, normal air movement Cardiovascular: nl pulses, regular rate and rhythm Gastrointestinal: non-tender, soft Musculoskeletal: nl extremities to inspection Extremities: normal pulses Neurological: nl mental status, nl speech Results Result Diagram: 08/05/16 0647 08/05/16 0647 Results 24 hrs Laboratory Tests Test 08/05/16 06:47 White Blood Count 16.6 H Red Blood Count 5.32 Hemoglobin 15.7 Hematocrit 48.8 H Mean Corpuscular Volume 91.7 Mean Corpuscular Hemoglobin 29.5 Mean Corpuscular Hemoglobin Concent 32.2 Red Cell Distribution Width 13.2 Platelet Count 374 Mean Platelet Volume 9.8 Neutrophils % 74.0 Lymphocytes % 15.7 Monocytes % 6.0 Eosinophils % 0.2 Basophils % 0.5 Nucleated Red Blood Cells % 0.0 Neutrophils # 12.3 H Lymphocytes # 2.6 Monocytes # 1.0 H Eosinophils # 0.0 Basophils # 0.1 Nucleated Red Blood Cells # 0.0 Sodium Level 138 Potassium Level 4.8 Chloride Level 98 Carbon Dioxide Level 30 Anion Gap 15 Blood Urea Nitrogen 18 Creatinine 0.86 Glucose Level 122 Calcium Level 9.4 Medications Medications Current Medications Acetaminophen/ Hydrocodone Bitart ([place] (10/325)) 1 tab Q4H PRN PO PAIN Last administered on 08/05/16t 14:48; Admin Dose 1 TAB; Start 07/26/16 at 12:30 Ondansetron HCl (Zofran Inj) 4 mg Q6H PRN IV NAUSEA AND/OR VOMITING Last administered on 07/29/16 03:44; Admin Dose 4 MG; Start 07/26/16 at 12:30 Atenolol (Tenormin) 25 mg DAILY PO Last administered on 08/05/16 08:16; Admin Dose 25 MG; Start 07/27/16 at 09:00 Fluticasone Propionate (Flonase 0.05% Nasal) 1 spray DAILY NASAL Last administered on 08/05/16 08:16; Admin Dose 1 SPRAY; Start 07/27/16 at 09:00 Zolpidem Tartrate (Ambien) 5 mg QHS PRN PO INSOMNIA Last administered on 22:27; Admin Dose 5 MG; Start 07/26/16 at 18:00 Pantoprazole (Protonix Tab) 40 mg DAILY@06 PO Last administered on 08/05/16 05 :55; Admin Dose 40 MG; Start 07/27/16 at 06:00 Hydralazine HCl (Apresoline) 10 mg Q4H PRN IV sbp >150 & dbp>95; Start 07/26/16 at 18:00 Cyclobenzaprine HCl (Flexeril) 10 mg TID PO Last administered on 08/05/16 12: 33; Admin Dose 10 MG; Start 07/27/16 at 13:00 Trimethoprim/ Sulfamethoxazole (Bactrim (Ds)) 1 tab BID GTB Last administered on 08/05/16 08:15; Admin Dose 1 TAB; Start 07/27/16 at 21:00 Hydromorphone HCl (Dilaudid) 1 mg Q3H PRN IV PAIN LEVEL 7-10 Last administered on 08/05/16 15:50; Admin Dose 1 MG; Start 07/29/16 at 16:00 Clonidine (Catapres) 0.1 mg Q6H PRN PO sbp>150 Last administered on 07/31/16 22:07; Admin Dose 0.1 MG; Start 07/29/16 at 14:00 Docusate Sodium (Colace) 250 mg BID PO Last administered on 08/05/16 08:15; Admin Dose 250 MG; Start 07/31/16 at 21:00 Polyethylene Glycol (Miralax) 17 gm DAILY PRN PO CONSTIPATION Last administered on 08/02/16 13:54; Admin Dose 17 GM; Start 07/31/16 at 13:00 Bisacodyl (Dulcolax) 5 mg BID PRN PO CONSTIPATION Last administered on 13:54; Admin Dose 5 MG; Start 07/31/16 at 13:00 Dexamethasone (Decadron) 4 mg Q8 IV Last administered on 08/05/16 14:48; Admin Dose 4 MG; Start 08/03/16 at 22:00 Oxycodone HCl (Oxycontin) 20 mg BID PO Last administered on 08/05/16 08:15; Admin Dose 20 MG; Start 08/03/16 at 21:00 ANGLE GONZALEZ Aug 05, 2016 17:39
[2016-08-05] MEDS: BISACODYL (EC) 5 MG TAB PO PRN (21:26)
[2016-08-05] MEDS: TRIMETHOPRIM/SULFAMETHOX (DS) TAB PO SCH (21:35)
[2016-08-06] MEDS: HYDROmorphONE 1 MG/ML SYG IV PRN ×6 (01:22→18:53)
[2016-08-06] MEDS: PANTOPRAZOLE (EC) 40 MG TAB PO SCH (03:26)
[2016-08-06 08:15] VITALS: BP 120/70; RESP 16
[2016-08-06] MEDS: CYCLOBENZAPRINE 10 MG TAB PO SCH ×3 (08:32→20:38)
[2016-08-06] MEDS: DOCUSATE SODIUM 250 MG CAP PO SCH ×2 (08:33→20:38)
[2016-08-06] MEDS: oxyCODONE (CR) 20 MG TAB [oxyCONTIN] PO SCH ×2 (08:33→20:38)
[2016-08-06] MEDS: ATENOLOL 25 MG TAB PO SCH (08:33)
[2016-08-06] MEDS: TRIMETHOPRIM/SULFAMETHOX (DS) TAB PO SCH ×2 (08:33→20:38)
[2016-08-06] MEDS: FLUTICASONE 0.05% 16 GM NAS SPRAY NASAL SCH (08:34)
[2016-08-06] MEDS: HYDROCODONE/APAP (10/325) TAB PO PRN ×2 (10:12→15:54)
[2016-08-06 11:00] LABS: ADD SCAN DIFF NO
[2016-08-06 11:04] LABS: ABNORMAL IP MESSAGE 1; HEMOGLOBIN 15.5 g/dl (12.0-16.0); MEAN CORPUSCULAR HEMOGLOBIN 30.3 pg (29.0-33.0); MEAN PLATELET VOLUME 9.8 fl (7.4-10.4); PLATELET COUNT 373 10^3/UL (140-415); RED BLOOD COUNT 5.11 10^6/ul (4.20-5.40); RED CELL DISTRIBUTION WIDTH 13.3 % (11.5-14.5); WHITE BLOOD COUNT 22.9 10^3/ul (4.8-10.8)
[2016-08-06 11:24] LABS: CALCIUM 9.2 mg/dl (8.4-10.2); CREATININE 0.83 mg/dl (0.44-1.00); POTASSIUM 4.6 mmol/L (3.5-5.1)
[2016-08-06 12:41] LABS: EOSINOPHILS # 0.2 10^3/ul (0.0-0.5); LYMPHOCYTES # 2.3 10^3/ul (0.8-2.9); MONOCYTE # 0.5 10^3/ul (0.3-0.9); NEUTROPHIL # 19.5 10^3/ul (1.6-7.5)
--- NOTE | 2016-08-06 16:17 | PN ---
Date/Time of Note Date/Time of Note DATE: 08/06/16 TIME: 16:15 Assessment/Plan Lines/Catheters IV Catheter Type (from Nrsg): Saline Lock Urinary Cath still in place: No Assessment/Plan Assessment/Plan 1. Right knee osteoarthritis, status post right total knee replacement. The patient received intraoperative antibiotics. Continue Roxicodone and Dilaudid p.r.n. for pain, Zofran p.r.n. for nausea. Will continue the patient on aspirin. 2. Will continue Protonix for peptic ulcer disease prophylaxis and sequential compression device for deep venous thrombosis prophylaxis. 3. Continue to follow up orthopedic surgery recommendations. Further recommendations based on clinical course. Plan of care discussed with Dr. Wade. Subjective 24 Hr Interval Summary Respiratory: no complaints Cardiovascular: no complaints Gastrointestinal: no complaints Genitourinary: no complaints Musculoskeletal: back pain Exam/Review of Systems Vital Signs Vitals Vital Signs Date Time Temp Pulse Resp B/P Pulse Ox O2 Delivery O2 Flow Rate FiO2 08/06/16 08:15 97.9 63 16 120/70 99 Intake and Output 08/05/16 08/05/16 08/06/16 15:00 23:00 07:00 Intake Total 1400 ml 400 ml Balance 1400 ml 400 ml Exam Constitutional: alert Respiratory: clear to auscultation, normal air movement Cardiovascular: nl pulses, regular rate and rhythm Gastrointestinal: non-tender, soft Musculoskeletal: nl extremities to inspection Extremities: normal pulses Neurological: nl mental status, nl speech Results Result Diagram: 08/06/16 1039 08/06/16 1039 Results 24 hrs Laboratory Tests Test 08/06/16 10:39 White Blood Count 22.9 #H Red Blood Count 5.11 Hemoglobin 15.5 Hematocrit 47.0 Mean Corpuscular Volume 92.0 Mean Corpuscular Hemoglobin 30.3 Mean Corpuscular Hemoglobin Concent 33.0 Red Cell Distribution Width 13.3 Platelet Count 373 Mean Platelet Volume 9.8 Neutrophils % 85.0 H Band Neutrophils % 2.0 Lymphocytes % 10.0 L Monocytes % 2.0 Eosinophils % 1.0 Neutrophils # 19.5 H Lymphocytes # 2.3 Monocytes # 0.5 Eosinophils # 0.2 Sodium Level 134 L Potassium Level 4.6 Chloride Level 96 L Carbon Dioxide Level 30 Anion Gap 13 Blood Urea Nitrogen 18 Creatinine 0.83 Glucose Level 97 Calcium Level 9.2 Medications Medications Current Medications Acetaminophen/ Hydrocodone Bitart ([place] ()) 1 tab Q4H PRN PO PAIN Last administered on 08/06/16 15:54; Admin Dose 1 TAB; Start 07/26/16 at 12:30 Ondansetron HCl (Zofran Inj) 4 mg Q6H PRN IV NAUSEA AND/OR VOMITING Last administered on 07/29/16 03:44; Admin Dose 4 MG; Start 07/26/16 at 12:30 Atenolol (Tenormin) 25 mg DAILY PO Last administered on 08/06/16 08:33; Admin Dose 25 MG; Start 07/27/16 at 09:00 Fluticasone Propionate (Flonase 0.05% Nasal) 1 spray DAILY NASAL Last administered on 08/05/16 08:16; Admin Dose 1 SPRAY; Start 07/27/16 at 09:00 Zolpidem Tartrate (Ambien) 5 mg QHS PRN PO INSOMNIA Last administered on 22:27; Admin Dose 5 MG; Start 07/26/16 at 18:00 Pantoprazole (Protonix Tab) 40 mg DAILY@06 PO Last administered on 08/06/16 03 :26; Admin Dose 40 MG; Start 07/27/16 at 06:00 Hydralazine HCl (Apresoline) 10 mg Q4H PRN IV sbp >150 & dbp>95; Start 07/26/16 at 18:00 Cyclobenzaprine HCl (Flexeril) 10 mg TID PO Last administered on 08/06/16 12: 24; Admin Dose 10 MG; Start 07/27/16 at 13:00 Hydromorphone HCl (Dilaudid) 1 mg Q3H PRN IV PAIN LEVEL 7-10 Last administered on 08/06/16 13:08; Admin Dose 1 MG; Start 07/29/16 at 16:00 Clonidine (Catapres) 0.1 mg Q6H PRN PO sbp>150 Last administered on 07/31/16 22:07; Admin Dose 0.1 MG; Start 07/29/16 at 14:00 Docusate Sodium (Colace) 250 mg BID PO Last administered on 08/06/16 08:33; Admin Dose 250 MG; Start 07/31/16 at 21:00 Polyethylene Glycol (Miralax) 17 gm DAILY PRN PO CONSTIPATION Last administered on 08/02/16 13:54; Admin Dose 17 GM; Start 07/31/16 at 13:00 Bisacodyl (Dulcolax) 5 mg BID PRN PO CONSTIPATION Last administered on 21:26; Admin Dose 5 MG; Start 07/31/16 at 13:00 Oxycodone HCl (Oxycontin) 20 mg BID PO Last administered on 08/06/16 08:33; Admin Dose 20 MG; Start 08/03/16 at 21:00 Trimethoprim/ Sulfamethoxazole (Bactrim (Ds)) 1 tab BID PO Last administered on 08/06/16 08:33; Admin Dose 1 TAB; Start 08/05/16 at 21:00 Dexamethasone (Decadron) 4 mg DAILY IV ; Start 08/06/16 at 22:00; Stop 08/06/16 at 23:59 ANGLE GONZALEZ Aug 06, 2016 16:17
[2016-08-06 21:21] VITALS: BP 110/70; RESP 18
[2016-08-06] MEDS: ZOLPIDEM 5 MG TAB PO PRN (21:41)
[2016-08-06] MEDS ORDERED: DEXAMETHASONE 4 MG/ML 1 ML INJ IV SCH (22:00)
[2016-08-07] MEDS: HYDROmorphONE 1 MG/ML SYG IV PRN ×2 (03:54→08:19)
[2016-08-07] MEDS: PANTOPRAZOLE (EC) 40 MG TAB PO SCH (05:47)
[2016-08-07 07:55] LABS: ADD SCAN DIFF NO
[2016-08-07 07:59] LABS: BASOPHILS % 0.1 % (0.0-2.0); EOSINOPHILS # 0.1 10^3/ul (0.0-0.5); EOSINOPHILS % 0.6 % (0.0-7.0); HEMATOCRIT 46.5 % (37.0-47.0); HEMOGLOBIN 14.6 g/dl (12.0-16.0); LYMPHOCYTES # 2.3 10^3/ul (0.8-2.9); LYMPHOCYTES % 15.2 % (15.0-51.0); MEAN CORPUSCULAR HEMOGLOBIN 29.3 pg (29.0-33.0); MEAN CORPUSCULAR HGB CONC 31.4 g/dl (32.0-37.0); MEAN CORPUSCULAR VOLUME 93.4 fl (82.0-101.0); MEAN PLATELET VOLUME 9.8 fl (7.4-10.4); MONOCYTE # 1.2 10^3/ul (0.3-0.9); MONOCYTES % 7.5 % (0.0-11.0); NEUTROPHIL # 11.5 10^3/ul (1.6-7.5); NEUTROPHILS % 74.8 % (39.0-77.0); PLATELET COUNT 314 10^3/UL (140-415); RED BLOOD COUNT 4.98 10^6/ul (4.20-5.40); RED CELL DISTRIBUTION WIDTH 13.7 % (11.5-14.5); WHITE BLOOD COUNT 15.4 10^3/ul (4.8-10.8)
[2016-08-07 08:10] VITALS: BP 108/58; RESP 16
[2016-08-07 08:26] LABS: CREATININE 0.87 mg/dl (0.44-1.00); POTASSIUM 4.6 mmol/L (3.5-5.1)
[2016-08-07] MEDS: ATENOLOL 25 MG TAB PO SCH (09:00)
[2016-08-07] MEDS: CYCLOBENZAPRINE 10 MG TAB PO SCH ×5 (09:00→21:00)
[2016-08-07] MEDS: DOCUSATE SODIUM 250 MG CAP PO SCH ×2 (09:03→21:33)
[2016-08-07] MEDS: FLUTICASONE 0.05% 16 GM NAS SPRAY NASAL SCH (09:03)
[2016-08-07] MEDS: TRIMETHOPRIM/SULFAMETHOX (DS) TAB PO SCH ×2 (09:04→21:33)
[2016-08-07] MEDS: oxyCODONE (CR) 20 MG TAB [oxyCONTIN] PO SCH ×2 (09:04→21:33)
[2016-08-07] MEDS: HYDROCODONE/APAP (10/325) TAB PO PRN ×2 (12:08→16:25)
[2016-08-07] MEDS ORDERED: DOCU250C58 PO (15:17)
[2016-08-07] MEDS ORDERED: Hydrocodone/Apap (10/325) PO (15:17)
[2016-08-07] MEDS ORDERED: CYCL-319 PO (15:17)
[2016-08-07] MEDS ORDERED: OXYC20TA41 PO (15:17)
[2016-08-07 20:00] VITALS: BP 108/54; RESP 19
[2016-08-07] MEDS: ZOLPIDEM 5 MG TAB PO PRN (23:02)
[2016-08-08] MEDS: HYDROCODONE/APAP (10/325) TAB PO PRN ×2 (02:38→10:07)
[2016-08-08] MEDS: PANTOPRAZOLE (EC) 40 MG TAB PO SCH (06:30)
[2016-08-08 07:00] VITALS: BP 98/50; RESP 18
[2016-08-08] MEDS: CYCLOBENZAPRINE 10 MG TAB PO SCH ×2 (08:53→12:50)
[2016-08-08] MEDS: FLUTICASONE 0.05% 16 GM NAS SPRAY NASAL SCH (08:53)
[2016-08-08] MEDS: TRIMETHOPRIM/SULFAMETHOX (DS) TAB PO SCH (08:53)
[2016-08-08] MEDS: DOCUSATE SODIUM 250 MG CAP PO SCH (08:53)
[2016-08-08] MEDS: oxyCODONE (CR) 20 MG TAB [oxyCONTIN] PO SCH (08:56)
[2016-08-08] MEDS: ATENOLOL 25 MG TAB PO SCH (08:56)
--- NOTE | 2016-08-08 10:59 | PN ---
Date/Time of Note Date/Time of Note DATE: 08/08/16 TIME: 10:57 Assessment/Plan VTE Prophylaxis VTE Prophylaxis Intervention: SCD's Lines/Catheters [facility] Saline Lock Urinary Cath still in place: No Assessment/Plan Chief Complaint/Hosp Course She was discharged yesterday however discharge was held due to problem with obtaining pain medication prescription from [facility]. Assessment/Plan - Cervical spinal stenosis with cord compression, status post surgery. - Hypertension. currently normotensive. - History of lumbar stenosis, status post surgery. DC planning Further recommendations based on clinical course. Plan of care discussed with Dr. Wade. Problems: Exam/Review of Systems Vital Signs Vitals Vital Signs Date Time Temp Pulse Resp B/P Pulse Ox O2 Delivery O2 Flow Rate FiO2 08/08/16 07:00 98.4 71 18 98/50 96 Intake and Output 08/07/16 08/07/16 08/08/16 15:00 23:00 07:00 Intake Total 1460 ml 1600 ml Output Total 1200 ml Balance 260 ml 1600 ml Exam Constitutional: alert Head: normocephalic Neck: other (Status post surgery) Respiratory: clear to auscultation Cardiovascular: nl pulses Gastrointestinal: non-tender, soft Musculoskeletal: nl extremities to inspection Extremities: normal pulses Neurological: nl mental status Results Result Diagram: 08/07/1645 08/07/16 0745 Medications Medications Current Medications Acetaminophen/ Hydrocodone Bitart ([place] (10/325)) 1 tab Q4H PRN PO PAIN Last administered on 08/08/16 10:07; Admin Dose 1 TAB; Start 07/26/16 at 12:30 Ondansetron HCl (Zofran Inj) 4 mg Q6H PRN IV NAUSEA AND/OR VOMITING Last administered on 07/29/16 03:44; Admin Dose 4 MG; Start 07/26/16 at 12:30 Atenolol (Tenormin) 25 mg DAILY PO Last administered on 08/06/16 08:33; Admin Dose 25 MG; Start 07/27/16 at 09:00 Fluticasone Propionate (Flonase 0.05% Nasal) 1 spray DAILY NASAL Last administered on 08/08/16 08:53; Admin Dose 1 SPRAY; Start 07/27/16 at 09:00 Zolpidem Tartrate (Ambien) 5 mg QHS PRN PO INSOMNIA Last administered on 23:02; Admin Dose 5 MG; Start 07/26/16 at 18:00 Pantoprazole (Protonix Tab) 40 mg DAILY@06 PO Last administered on 08/08/16 06 :30; Admin Dose 40 MG; Start 07/27/16 at 06:00 Hydralazine HCl (Apresoline) 10 mg Q4H PRN IV sbp >150 & dbp>95; Start 07/26/16 at 18:00 Cyclobenzaprine HCl (Flexeril) 10 mg TID PO Last administered on 08/08/16 08: 53; Admin Dose 10 MG; Start 07/27/16 at 13:00 Hydromorphone HCl (Dilaudid) 1 mg Q3H PRN IV PAIN LEVEL 7-10 Last administered on 08/07/16 08:19; Admin Dose 1 MG; Start 07/29/16 at 16:00 Clonidine (Catapres) 0.1 mg Q6H PRN PO sbp>150 Last administered on 07/31/16 22:07; Admin Dose 0.1 MG; Start 07/29/16 at 14:00 Docusate Sodium (Colace) 250 mg BID PO Last administered on 08/08/16 08:53; Admin Dose 250 MG; Start 07/31/16 at 21:00 Polyethylene Glycol (Miralax) 17 gm DAILY PRN PO CONSTIPATION Last administered on 08/02/16 13:54; Admin Dose 17 GM; Start 07/31/16 at 13:00 Bisacodyl (Dulcolax) 5 mg BID PRN PO CONSTIPATION Last administered on 21:26; Admin Dose 5 MG; Start 07/31/16 at 13:00 Oxycodone HCl (Oxycontin) 20 mg BID PO Last administered on 08/08/16 08:56; Admin Dose 20 MG; Start 08/03/16 at 21:00 Trimethoprim/ Sulfamethoxazole (Bactrim (Ds)) 1 tab BID PO Last administered on 08/08/16 08:53; Admin Dose 1 TAB; Start 08/05/16 at 21:00 DANII PELAEZ Aug 08, 2016 10:59
== END 2016-08-08 13:50 | disposition home or self-care (01) | DRG 471 ==
LOC: REC 10:25 → ICU 21:20 → MS1 07-29 19:00
PROVIDERS: ADMIT Neurological Surgery; ATTEND Internal Medicine
PROC: 0RG2071 Fusion of 2 or more Cervical Vertebral Joints with Autologous Tissue Substitute, Posterior Approach, Posterior Column, Open Approach (ICD-10-PCS; 2016-07-26)
PROC: 0PB30ZZ Excision of Cervical Vertebra, Open Approach (ICD-10-PCS; 2016-07-26)
PROC: 0RT30ZZ Resection of Cervical Vertebral Disc, Open Approach (ICD-10-PCS; principal; 2016-07-26 12:30)
DX: M48.02 Spinal stenosis, cervical region (principal); G82.50 Quadriplegia, unspecified; G95.20 Unspecified cord compression; E66.01 Morbid (severe) obesity due to excess calories; G95.9 Disease of spinal cord, unspecified; M54.12 Radiculopathy, cervical region; I10 Essential (primary) hypertension; Z68.38 Body mass index [BMI] 38.0-38.9, adult
CPT/HCPCS: 72040; 72141; 80048; 81003; 82962; 85025; 86900; 86901; 87081; 97116; 97161; 97530; C1762; J0360; J1100; J1170; J1200; J1644; J2060; J2175; J2250; J2405; J2710; J3010; J7070; J7121; J7999